=== PATIENT | female | born 1930 ===

== ENCOUNTER 2018-06-23 16:38 | Inpatient (IN) | payer OTHER ==
[2018-06-23 17:21] VITALS: BMI 24.0
--- NOTE | 2018-06-23 17:48 | PDOC ---
History of Present Illness - General Chief Complaint: Pain Stated Complaint: ELEVATED BP Time Seen by Provider: 06/23/18 17:22 History Source: Patient, Snf Records, Old Records Exam Limitations: Dementia - History of Present Illness Initial Comments: HPI: 87 y/o female BIBEMS from [facility]. Demented at baseline and unable to provide history. Transfer paperwork indicates reason for transfer as hypertensive, hyperglycemic, and vomiting. No member of staff or family member present at bedside. Telephone conversation with [facility] staff nurse, who reports the pt threw up twice today without blood or bile. Transfer requested by Dr. Oconnor. Court Appointed Guardian: Keeley Boyle PCP: Dr. Oconnor Medical Hx: - CAD - HTN - Dementia - Alzheimers Disease - Diabetes, paperwork lists both type 1 and type 2 on separate lines - Vit. D Deficiency - HLD - Agranulocytosis secondary to cancer chemotherapy - Malignant neoplasm of central portion of left female breast Past History - Past Medical History Allergies/Adverse Reactions: Allergies Allergy/AdvReac Type Severity Reaction Status Date / Time No Known Allergies Allergy Verified 06/23/18 17:22 Home Medications: Ambulatory Orders Acetaminophen [Tylenol] 650 mg PO ASDIR 06/23/18 Amlodipine Besylate [Norvasc -] 10 mg PO DAILY 06/23/18 Anastrozole [Arimidex] 1 mg PO DAILY 06/23/18 Aspirin 81 mg PO DAILY 06/23/18 Carvedilol 6.25 mg PO DAILY 06/23/18 Cholecalciferol (Vitamin D3) [Vitamin D3] 50,000 unit PO WEEKLY 06/23/18 Enalapril Maleate [Vasotec] 20 mg PO DAILY 06/23/18 Glipizide/Metformin HCl [Glipizide-Metformin 5-500 mg] 1 each PO BID 06/23/18 Insulin Glargine,Hum.rec.anlog [Lantus] 100 unit SQ ASDIR 06/23/18 Insulin Lispro [Humalog] 100 unit SQ ASDIR 06/23/18 Magnesium Oxide [Magnesium] 400 mg PO DAILY 06/23/18 Pravastatin Sodium [Pravachol (Nf)] 20 mg PO HS 06/23/18 Rivastigmine [Exelon Patch 4.6MG/24 Hours] 1 each TD DAILY 03/24/19 COPD: No - Immunization History Immunization Up to Date: Yes - Suicide/Smoking/Psychosocial Hx Smoking History: Never smoked Information on smoking cessation initiated: No Hx Alcohol Use: No Drug/Substance Use Hx: No Review of Systems - Review of Systems Able to Perform ROS?: No (Pt demented at baseline) *Physical Exam - Vital Signs Last Vital Signs Temp Pulse Resp BP Pulse Ox 97.8 F 80 16 160/80 96 06/23/18 17:16 06/23/18 17:16 06/23/18 17:16 06/23/18 17:16 06/23/18 17:16 - Physical Exam Comments: Constitutional: Well-developed, well-nourished, non-toxic elderly female in no acute distress or obvious discomfort. Found semi-fowlers in hospital bed. Sleeping comfortably. Easily arousable to voice. Alert and oriented to person only. Head: Normocephalic. No obvious external signs of trauma. Eyes: Sclerae white. Ears: Hearing grossly intact. Nose: No nasal discharge. Neck: Supple, trachea is midline. Cardiovascular / Chest: Regular rate and regular rhythm. No murmur, rubs, clicks, or gallops. Peripheral pulses: radial pulses full. Respiratory: Breathing unlabored. Equal chest rise and fall. Clear to auscultation bilaterally. No stridor, no wheezing, no rhonchi. Gastrointestinal: abdomen is tender in LLQ with mild facial grimace but no rebound or guarding. Globally, abdomen is soft and nondistended. No peritoneal signs. No overlying skin lesions or obvious signs of trauma. Neuro: Moving all four extremities spontaneously. Skin: Warm, dry, and intact. Psych: Affect: appropriate. Mood: normal. Moderate Sedation - Procedure Monitoring Vital Signs: Procedure Monitoring Vital Signs Temperature 97.8 F 06/23/18 17:16 Pulse Rate 80 06/23/18 17:16 Respiratory Rate 16 06/23/18 17:16 Blood Pressure 160/80 06/23/18 17:16 O2 Sat by Pulse Oximetry (%) 96 06/23/18 17:16 ED Treatment Course - LABORATORY CBC & Chemistry Diagram: 06/23/18 18:09 06/23/18 18:09 - RADIOLOGY Radiograph Interpretation: CT of Abdomen and Pelvis without Contrast: Dakota Encinas MD wrote on Jun 23, 2018 at 08:57 PM: Referring Physician: BISHOP SANTIAGO Patient Name: DERRICK MOTLEY THIS IS A PRELIMINARY REPORT FROM [facility] DATE OF SERVICE: 2018-06-23 19:18:45 IMAGES: [id number] EXAM: ABDOMEN \T\ PELVIS CT W/O CONTR History: 87-year-old female with left lower quadrant pain and vomiting. Dementia. Comparison: None Procedure: CT scan abdomen and pelvis; dated June 23, 2018 . Axial images obtained followed by coronal and sagittal reconstructions. Study performed unenhanced. Findings: The unenhanced liver, spleen, pancreas, and adrenal glands are unremarkable. Gallbladder and gallbladder fossa normal in appearance. No intrarenal calculi identified. No evidence of right or left-sided hydronephrosis, hydroureter, ureteral or bladder calculi. Rectum and perirectal space unremarkable. Diverticular change noted sigmoid colon and left colon. Scattered diverticula also noted transverse colon and right colon. No inflammatory changes of the large bowel identified. Terminal ileum and appendix within normal limits. Diverticular change also seen involving proximal small bowel loops with slight inflammatory change noted in the adjacent fat to an upper small bowel loop. There is no evidence of a small bowel obstruction. No free intraperitoneal air or fluid identified. No abdominal wall defects noted. Postmenopausal appearance of the uterus. No adnexal masses appreciated. No evidence of an abdominal aortic aneurysm. Calcifications noted at the origins of the branch vessels of the abdominal aorta. IVC normal configuration. Multilevel degenerative disc disease of the lumbar spine and lower thoracic spine. Impression: 1. Limited CT scan abdomen and pelvis, unenhanced. 2. Extensive colonic diverticulosis. No CT evidence of acute colonic diverticulitis. 3. Diverticular change also seen involving several proximal small bowel loops with mild inflammatory changes to the adjacent fat; consistent with acute small bowel diverticulitis. No extraluminal air or abdominal ascites present. One or more of the following dose reduction techniques were used: automated exposure control, adjustment of the mA and/or kV according to patient size, use of iterative reconstructive technique. THIS DOCUMENT HAS BEEN ELECTRONICALLY SIGNED Dakota Encinas MD 06/23/2018 20:55 EST Medical Decision Making - Medical Decision Making *Reviewed vital signs, nursing notes, and prior visit documentation (if available). 87 y/o female presenting for vomiting, HTN, and hyperglycemia. Demented pt unable to provide any history or active complaint. Afebrile. Vitals unremarkable for hypotension or tachycardia. Mild LLQ abdominal pain. Labs significant for leukocytosis with left shift. BUN/Cr mildly elevated. No previous labs available for comparison. Non-con CT of abdomen and pelvis ordered; unenhanced secondary to pts elevated Cr and decreased eGFR. Revealed findings suggestive for acute small bowel diverticulitis. Ordered Zosyn for gram negative and anaerobic coverage. Ordered 1L IVFB. Will admit pt for continued IV antibiotics given leukocytosis, advanced age, and demented mental status. 21:12 Microblog sent to [facility] service for admission. Awaiting call back. 21:[address] Velarde. Verbally appraised of the pts HPI, ED course, and current plan of management. Will admit the pt to med/surg on inpatient status. No additional ordered requested. 06/23/18 21:25 [address] conversation with pt's court appointed guardian, Keeley Boyle. Updated to pt's pending admission. *DC/Admit/Observation/Transfer Diagnosis at time of Disposition: Diverticulitis small intestine w/o perforation or abscess w/o bleeding - Discharge Dispostion Condition at time of disposition: Stable Decision to Admit order: Yes - Referrals - Patient Instructions - Post Discharge Activity
--- NOTE | 2018-06-23 17:53 | PDOC ---
Attending Attestation - HPI HPI: 06/23/18 17:54 The patient is a 87 YOF with a PMH of CAD, HTN, DM, HLD, c diff, L sided breast CA who presents to the ER sent in by [facility] for abdominal pain, nausea, and multiple episodes of NB, NB vomit. Patient is unable to provide any further history. Allergies: NKDA Surgeries: None reported Social Hx: No reported alcohol, drug or cigarette use. - Physicial Exam PE: 06/23/18 17:54 ADULT EXAM GENERAL: (+) A&Ox1, to self. HEAD: No signs of trauma EYES: PERRLA, EOMI, sclera anicteric, conjunctiva clear ENT: Auricles normal inspection, hearing grossly normal, nares patent, Moist mucosa NECK: Normal ROM, supple, JVD, or masses LUNGS: Breath sounds equal, clear to auscultation bilaterally. No wheezes, and no crackles HEART: Regular rate and rhythm, normal S1 and S2, no murmurs, rubs or gallops ABDOMEN: Soft, (+) diffuse abdominal tenderness, but worse on the left lower quadrant EXTREMITIES: Normal range of motion, no edema. NEUROLOGICAL: (+) A&Ox1, to self. SKIN: Warm, Dry, normal turgor, no rashes or lesions noted. <Delilah Jimenes - Last Filed: 06/23/18 17:54> - Resident Resident Name: [email or web address] - ED Attending Attestation I have performed the following: I have examined & evaluated the patient, The case was reviewed & discussed with the resident, I agree w/resident's findings & plan, Exceptions are as noted - Medical Decision Making 06/23/18 17:52 A portion of this note was documented by scribe services under my direction. I have reviewed the details of the note, within reason, and agree with the documentation with the following case summary and management plan written by me. Patient treated in the ED. Nursing notes are reviewed and incorporated into the medical decision-making. Vital signs reviewed. Peripheral IV access obtained by the nurse, laboratory studies are drawn and sent, reviewed and interpreted by myself. Vital Signs Temp Pulse Resp BP Pulse Ox 97.8 F 80 16 160/80 96 06/23/18 17:16 06/23/18 17:16 06/23/18 17:16 06/23/18 17:16 06/23/18 17:16 87-year-old female patient with past medical history of coronary artery disease , hypertension, diabetes, hyperlipidemia, C. difficile history, left-sided breast cancer presents with abdominal pain, nausea and vomiting. The patient was sent from [facility] with symptoms of hyperglycemia and vomiting. The patient has endorsed abdominal discomfort but given her dementia, patient is unable to provide more history. We will touch base with the facility regards for more information but given the tenderness particularly left lower quadrant, we'll need a CAT scan of the abdomen pelvis rule out diverticulitis or other acute abdominal pathology. Obtain labs, urinalysis and reassess. 06/23/18 18:11 Dr. Perez had called [facility]. Stated that these symptoms occurred today so pt was sent to ER. Dr. Perez also contacted Keeley pt's HCP, who is aware of patient's situation. 06/23/18 18:54 CBC, BMP 06/23/18 18:09 Pt signed out to oncoming night attending Dr. Nelson for further evaluation and management. <Fco Son - Last Filed: 06/23/18 18:55>
[2018-06-23 18:35] LABS: BASO % 0.2 % (0-2.0); EOS % 0.2 % (0-4.5); HEMATOCRIT 41.1 % (32.4-45.2); HEMOGLOBIN 13.9 GM/dL (10.7-15.3); MCH 30.6 pg (25.7-33.7); MCHC 33.9 g/dl (32.0-36.0); MEAN CELL VOLUME 90.1 fl (80-96); MEAN PLT VOLUME 7.9 fl (7.5-11.1); MONO % 2.7 % (3.8-10.2); NEUT % 89.9 % (42.8-82.8); PLATELET COUNT 297 K/MM3 (134-434); RBC 4.56 M/mm3 (3.60-5.2); RDW 13.9 % (11.6-15.6); WHITE BLOOD COUNT 18.9 K/mm3 (4.0-10.0)
[2018-06-23 18:37] LABS: EPI CELLS 0.5 /HPF (0-5); PH,URINE 7.5 (5.0-8.0); URINE APPEARANCE CLEAR; URINE BACTERIA 1.854 /hpf (NEGATIVE); URINE BILIRUBIN NEGATIVE (<2.0 mg/dL); URINE CASTS 0 /hpf (0-8); URINE COLOR YELLOW; URINE GLUCOSE (UA) 2+ (NEGATIVE); URINE KETONE 1+ (NEGATIVE); URINE LEUK ESTERASE NEGATIVE (NEGATIVE); URINE NITRITE NEGATIVE (NEGATIVE); URINE PROTEIN 2+ (NEGATIVE); URINE RBC 1 /hpf (0-4); URINE UROBILINOGEN 0.2 mg/dL (0.2-1.0); URINE WBC 0 /hpf (0-5)
[2018-06-23 19:10] LABS: ALBUMIN 3.8 g/dl (3.4-5.0); ALK PHOS 140 U/L (45-117); ANION GAP 9 MMOL/L (8-16); BILIRUBIN,TOTAL 0.5 mg/dL (0.2-1); BLOOD UREA NITROGEN 29 mg/dL (7-18); CALCIUM 9.3 mg/dL (8.5-10.1); CHLORIDE 102 mmol/L (98-107); CO2 23 mmol/L (21-32); CREATININE 1.3 mg/dL (0.55-1.3); GLUCOSE,RANDOM 231 mg/dL (74-106); LIPASE 151 U/L (73-393); POTASSIUM 5.2 mmol/L (3.5-5.1); SGOT/AST 25 U/L (15-37); SGPT/ALT 19 U/L (13-61); SODIUM 133 mmol/L (136-145); TOT PROT 8.7 g/dl (6.4-8.2)
[2018-06-23] MEDS ORDERED: PIPERACILLIN/TAZOB 4.5 GM 4.5 GM in DEXTROSE 5%-WATER 100 ML IVPB ONE (21:07)
[2018-06-23] MEDS ORDERED: PIPERACILLIN/TAZOB 4.5 GM 4.5 GM/100 ML BAG IVPB ONE (21:15)
[2018-06-23] MEDS ORDERED: SODIUM CHLORIDE 0.9% 500 ML INFUS.BAG IV ONE (21:18)
--- NOTE | 2018-06-23 22:16 | HP ---
CHIEF COMPLAINT: BIBA for n/v and HTN PCP: Dr. Oconnor HISTORY OF PRESENT ILLNESS: Thank you Dr. Oconnor for allowing [facility] to take part in the ongoing care of your patient. Unfortunately the patient has minimal contribution to history due to underlying medical conditions. Briefly, this is a 87 y/o female with a PMH as documented who vomited twice at her NH (NBNB as far as I can tell) and was found to be hypertensive. She was brought to the ER and BP is stable in the 160s. She can not inform us if she is having sx due to her baseline dementia. HCP tells me that she occasionally will refuse to take medications at PR. She is found to have small bowel diverticulitis on CT scan preliminary read. She has no prior visits on file here. HCP denies history of CAD. Unfortunately the day shift has left her NH at this juncture. Recent Travel: None PAST MEDICAL HISTORY: Breast Cancer (saw oncology twice and refused to go back per guardian; takes anastrozole only), CAD, HTN, HLD, DM, Cdif PAST SURGICAL HISTORY: No recent procedures; confirm full hx with PCP Social History: Resident of [facility]; demented at baseline. Family History: Couldn't reliably confirm Allergies No Known Allergies Allergy (Verified 06/23/18 17:22) HOME MEDICATIONS: Home Medications Medication Instructions Recorded Acetaminophen [Tylenol] 650 mg PO ASDIR 06/23/18 Amlodipine Besylate [Norvasc -] 10 mg PO DAILY 06/23/18 Anastrozole [Arimidex] 1 mg PO DAILY 06/23/18 Aspirin 81 mg PO DAILY 06/23/18 Carvedilol 6.25 mg PO DAILY 06/23/18 Cholecalciferol (Vitamin D3) 50,000 unit PO WEEKLY 06/23/18 [Vitamin D3] Enalapril Maleate [Vasotec] 20 mg PO DAILY 06/23/18 Glipizide/Metformin HCl 1 each PO BID 06/23/18 [Glipizide-Metformin 5-500 mg] Insulin Glargine,Hum.rec.anlog 100 unit SQ ASDIR 06/23/18 [Lantus] Insulin Lispro [Humalog] 100 unit SQ ASDIR 06/23/18 Magnesium Oxide [Magnesium] 400 mg PO DAILY 06/23/18 Pravastatin Sodium [Pravachol (Nf)] 20 mg PO HS 06/23/18 Rivastigmine [Exelon Patch 1 each TD DAILY 06/23/18 4.6MG/24 Hours] REVIEW OF SYSTEMS 10 sys ROS couldn't be confirmed due to the underlying dementia PHYSICAL EXAMINATION Vital Signs - 24 hr 06/23/18 06/23/18 17:16 22:04 Temperature 97.8 F Pulse Rate 80 Pulse Rate [ 77 Apical] Respiratory 16 17 Rate Blood Pressure 160/80 Blood Pressure 157/78 [Right Arm] O2 Sat by Pulse 96 97 Oximetry (%) GENERAL: Awake, alert, not orientated but responds to verbal stimuli HEAD: Normal with no signs of trauma. EYES: Pupils equal, round and reactive to light, extraocular movements intact, sclera anicteric, conjunctiva clear. No lid lag. EARS, NOSE, THROAT: Ears normal, nares patent, oropharynx clear without exudates. Moist mucous membranes. NECK: Normal range of motion, supple without lymphadenopathy, JVD, or masses. LUNGS: Breath sounds equal, clear to auscultation bilaterally. No wheezes, and no crackles. No accessory muscle use. HEART: Regular rate and rhythm, normal S1 and S2 without murmur, rub or gallop. ABDOMEN: Soft, vague tender, not distended, normoactive bowel sounds, MUSCULOSKELETAL: Normal range of motion at all joints. No bony deformities or tenderness. No CVA tenderness. NEUROLOGICAL: Cranial nerves II-XII intact. Normal speech. PSYCHIATRIC: Cooperative. Good eye contact. Appropriate mood and affect. SKIN: Warm, dry, normal turgor, no rashes or lesions noted, normal capillary refill. *No staff was available to help me turn to assess for decub; will still need to assess Laboratory Results - last 24 hr 06/23/18 06/23/18 06/23/18 18:08 18:09 18:09 WBC 18.9 H RBC 4.56 Hgb 13.9 Hct 41.1 MCV 90.1 MCH 30.6 MCHC 33.9 RDW 13.9 Plt Count 297 MPV 7.9 Absolute Neuts (auto) 17.0 H Neutrophils % 89.9 H Lymphocytes % 7.0 L Monocytes % 2.7 L Eosinophils % 0.2 Basophils % 0.2 Nucleated RBC % 0 Sodium 133 L Potassium 5.2 H Chloride 102 Carbon Dioxide 23 Anion Gap 9 BUN 29 H Creatinine 1.3 Creat Clearance w eGFR 38.57 POC Glucometer 230 Random Glucose 231 H Calcium 9.3 Total Bilirubin 0.5 AST 25 ALT 19 Alkaline Phosphatase 140 H Troponin I < 0.02 Total Protein 8.7 H Albumin 3.8 Lipase 151 Urine Color Urine Appearance Urine pH Ur Specific [place] Urine Protein Urine Glucose (UA) Urine Ketones Urine Blood Urine Nitrite Urine Bilirubin Urine Urobilinogen Ur Leukocyte Esterase Urine WBC (Auto) Urine RBC (Auto) Urine Casts (Auto) U Epithel Cells (Auto) Urine Bacteria (Auto) Acetone, Qual 06/23/18 06/23/18 18:09 18:12 WBC RBC Hgb Hct MCV MCH MCHC RDW Plt Count MPV Absolute Neuts (auto) Neutrophils % Lymphocytes % Monocytes % Eosinophils % Basophils % Nucleated RBC % Sodium Potassium Chloride Carbon Dioxide Anion Gap BUN Creatinine Creat Clearance w eGFR POC Glucometer Random Glucose Calcium Total Bilirubin AST ALT Alkaline Phosphatase Troponin I Total Protein Albumin Lipase Urine Color Yellow Urine Appearance Clear Urine pH 7.5 Ur Specific [place] 1.015 Urine Protein 2+ Urine Glucose (UA) 2+ Urine Ketones 1+ H Urine Blood Negative Urine Nitrite Negative Urine Bilirubin Negative Urine Urobilinogen 0.2 Ur Leukocyte Esterase Negative Urine WBC (Auto) 0 Urine RBC (Auto) 1 Urine Casts (Auto) 0 U Epithel Cells (Auto) 0.5 Urine Bacteria (Auto) 1.854 Acetone, Qual Negative L Prelim CT report (limited) shows extensive diverticulosis without diverticulitis in the colon; in the proximal small bowel she is found to have acute small bowel diverticulitis without any extraluminal air or abdominal ascites. ASSESSMENT/PLAN: Patient presents for HTN and was found to be mildly hyperglycemic with small bowel diverticulitis; placing on IVF, consulting surgery, placing on abx. Will continue home medications to control BP. Very mild hyperkalemia; will hydrate and recheck 1AM BMP-no EKG changes noted 1) Small Bowel Diverticulitis with nausea and vomiting -Seen on CT scan abdomen/pelvis. As QTc elevated placing on zosyn. NPO for now. IV fluid with NS@75cc/hr. Monitor for any signs of fluid overload; she has risk factors for CHF but no echo and limited PMH available at this time. -Consulting sgy for further opinion -Monitor on medicine service. Pain control with IV APAP; if appears uncomfortable can add MSO4 for pain but will avoid oversedation -No diarrhea noted; will check for cdiff given history if occurance here -Hold ASA for now in case any surgery required 2) Uncontrolled HTN -160s here; will continue home meds as scheduled (will hold AM Vasotec if K remains elevated after hydration). PRNs to keep SBP <160 while inpatient. I note that coreg is only reconciled as QD; normally BID dosing. Will investigate 3) DM with hyperglycemia -Hold PO medications; SSI. Home basal at full dose when eating (is on very large basal dose so may need to give some while NPO if glucose uncontrolled) -Paperwork lists her as both T1 and T2; glipizide and metformin on med list doesn't agree with a diagnosis of type 1. Can confirm with PCP. 4) Hyperkalemia -Very mild with no EKG changes. Telemetry to ensure safety overnight and can downgrade to med surg in AM. -Hydrating then checking 1AM BMP. If not improved consider insulin/D50 5) Hx Breast CA -Continue anastrazole 6) HLD -Continue statin 7) Severe Dementia 8) Leukocytosis 9) Prolonged Qtc -At 500; can recheck but will avoid QT prolonging agents FENA -NS@75 -PRN replete -NPO; advance in AM as tolerated. Due to nausea/vomiting -As tolerated; baseline activity level noted HCP: Court Appointed Guardian: Keeley Boyle Code Status: Full Code (spoke to guardian and she does not have authority to reverse this decision-will require a court order)
[2018-06-23] MEDS ORDERED: MORPHINE SULFATE 2 MG/ML VIAL IVPUSH PRN (22:56)
[2018-06-23] MEDS ORDERED: SODIUM CHLORIDE 1,000 ML IV SCH (23:00)
[2018-06-23] MEDS ORDERED: ACETAMINOPHEN 325 MG TABLET (FP) PO PRN (23:14)
[2018-06-23 23:54] LABS: BLOOD UREA NITROGEN 27 mg/dL (7-18); CALCIUM 8.6 mg/dL (8.5-10.1); CHLORIDE 104 mmol/L (98-107); CO2 23 mmol/L (21-32); CREATININE 1.2 mg/dL (0.55-1.3); GLUCOSE,RANDOM 222 mg/dL (74-106); POTASSIUM 5.1 mmol/L (3.5-5.1); SODIUM 134 mmol/L (136-145)
[2018-06-23 23:55] LABS: ANION GAP 8 MMOL/L (8-16)
[2018-06-24] MEDS ORDERED: PIPERACILLIN/TAZOB 3.375 GM 3.375 GM/50 ML BAG IVPB ONE ×2 (02:11→10:09)
[2018-06-24] MEDS: PIPERACILLIN/TAZOB 3.375 GM 3.375 GM in DEXTROSE 5%-WATER - 50 ML IVPB SCH ×2 (02:24→10:12)
[2018-06-24] MEDS ORDERED: INSULIN (NOVOLOG) ASPART 100 UNITS/ML 10ML VIAL ONE (02:26)
[2018-06-24] MEDS: INSULIN SLIDING SCALE (NOVOLOG) 1 VIAL SQ SCH ×4 (02:27→15:22)
[2018-06-24 07:17] LABS: BASO % 0.5 % (0-2.0); HEMATOCRIT 36.4 % (32.4-45.2); HEMOGLOBIN 12.6 GM/dL (10.7-15.3); LYMPH % 13.6 % (8-40); MCHC 34.5 g/dl (32.0-36.0); MEAN CELL VOLUME 89.8 fl (80-96); MEAN PLT VOLUME 7.7 fl (7.5-11.1); MONO % 9.3 % (3.8-10.2); NEUT % 75.6 % (42.8-82.8); PLATELET COUNT 282 K/MM3 (134-434); RBC 4.06 M/mm3 (3.60-5.2); RDW 13.7 % (11.6-15.6); WHITE BLOOD COUNT 16.3 K/mm3 (4.0-10.0)
[2018-06-24 07:47] LABS: ALBUMIN 3.2 g/dl (3.4-5.0); ALK PHOS 119 U/L (45-117); ANION GAP 7 MMOL/L (8-16); BILIRUBIN,TOTAL 0.6 mg/dL (0.2-1); BLOOD UREA NITROGEN 24 mg/dL (7-18); CALCIUM 8.6 mg/dL (8.5-10.1); CHLORIDE 106 mmol/L (98-107); CO2 24 mmol/L (21-32); CREATININE 1.3 mg/dL (0.55-1.3); GLUCOSE,RANDOM 135 mg/dL (74-106); MAGNESIUM 1.9 mg/dL (1.8-2.4); POTASSIUM 4.1 mmol/L (3.5-5.1); SGOT/AST 21 U/L (15-37); SGPT/ALT 16 U/L (13-61); SODIUM 136 mmol/L (136-145); TOT PROT 7.4 g/dl (6.4-8.2)
[2018-06-24] MEDS: PIPERACILLIN/TAZOB 2.25 GM 2.25 GM in DEXTROSE 5%-WATER - 50 ML IVPB SCH ×2 (09:40→16:52)
[2018-06-24] MEDS ORDERED: amLODIPine BESYLATE 10 MG TABLET (FP) PO SCH (10:00)
[2018-06-24] MEDS ORDERED: RIVASTIGMINE 4.6 MG/24 HOURS TRANSDERMAL PATCH TD SCH (10:00)
[2018-06-24] MEDS ORDERED: CARVEDILOL 6.25 MG TABLET (FP) PO SCH (10:00)
[2018-06-24] MEDS: HEPARIN NA (PORCINE) 5,000 UNITS/ML 1ML VIAL SQ SCH ×2 (10:00→22:18)
[2018-06-24] MEDS ORDERED: ANASTROZOLE 1 MG TABLET PO SCH (10:00)
--- NOTE | 2018-06-24 10:13 | EKG ---
Test Reason : Blood Pressure : / mmHG Vent. Rate : 082 BPM Atrial Rate : 082 BPM P-R Int : 136 ms QRS Dur : 136 ms QT Int : 428 ms P-R-T Axes : 068 035 104 degrees QTc Int : 500 ms NORMAL SINUS RHYTHM LEFT BUNDLE BRANCH BLOCK ABNORMAL ECG NO PREVIOUS ECGS AVAILABLE Confirmed by PEDRO MARTIN MD ([id number]) on 06/24/2018 10:12:41 AM Referred By: Confirmed By:PEDRO MARTIN MD
--- NOTE | 2018-06-24 14:33 | CON.ID ---
Consult Consult Specialty:: infectious diseases Referred by:: Reason for Consultation:: sepsis,ams - History of Present Illness Chief Complaint: patient with ams History of Present Illness: patient cannot give history which ahs been taken from the staff and charts 87yo obese, diabetic [facility] resident with dementia, HTN, HLD, CAD, L breast CA sent to ER after 2 episodes of vomiting at [place] with hypertension and hyperglycemia. patient in the er had elevated wbc and with ams and lethargic and weakness CT showed small bowel diverticulitis but none in colon without abscess or perforation. Surgery was asked to assess. patient looks very weak - History Source History Provided By: Medical Record Limitations to Obtaining History: Clinical Condition - Alcohol/Substance Use Hx Alcohol Use: No - Smoking History Smoking history: Never smoked Home Medications - Allergies Allergies/Adverse Reactions: Allergies Allergy/AdvReac Type Severity Reaction Status Date / Time No Known Allergies Allergy Verified 06/23/18 17:22 - Home Medications Home Medications: Ambulatory Orders Acetaminophen [Tylenol] 650 mg PO ASDIR 06/23/18 Amlodipine Besylate [Norvasc -] 10 mg PO DAILY 06/23/18 Anastrozole [Arimidex] 1 mg PO DAILY 06/23/18 Cholecalciferol (Vitamin D3) [Vitamin D3] 50,000 unit PO WEEKLY 06/23/18 Enalapril Maleate [Vasotec] 20 mg PO DAILY 06/23/18 Glipizide/Metformin HCl [Glipizide-Metformin 5-500 mg] 1 each PO BID 06/23/18 Insulin Glargine,Hum.rec.anlog [Lantus] 100 unit SQ ASDIR 06/23/18 Insulin Lispro [Humalog] 100 unit SQ ASDIR 06/23/18 Magnesium Oxide [Magnesium] 400 mg PO DAILY 06/23/18 Pravastatin Sodium [Pravachol (Nf)] 20 mg PO HS 06/23/18 RX: Aspirin 81 mg PO DAILY 06/23/18 RX: Carvedilol 6.25 mg PO DAILY 06/23/18 Rivastigmine [Exelon Patch 4.6MG/24 Hours] 1 each TD DAILY 06/23/18 Review of Systems Unable to obtain ROS, reason: unable to obtain Physical Exam Vital Signs: Vital Signs Temperature 98.0 F 06/24/18 10:00 Pulse Rate 71 06/24/18 10:00 Respiratory Rate 18 03/25/19 10:00 Blood Pressure 166/88 06/24/18 10:00 O2 Sat by Pulse Oximetry (%) 95 06/24/18 10:00 Constitutional: Yes: Calm, Other Eyes: Yes: Conjunctiva Clear Neck: Yes: Supple, Trachea Midline Cardiovascular: Yes: Regular Rate and Rhythm Respiratory: Yes: Poor Air Entry, Rhonchi Gastrointestinal: Yes: Normal Bowel Sounds, Soft Musculoskeletal: Yes: WNL Extremities: Yes: WNL Neurological: Yes: Lethargy, Other (confusion) Psychiatric: Yes: Other Labs: CBC, BMP 06/24/18 06:20 06/24/18 06:20 Imaging - Results Chest X-ray: Report Reviewed, Image Reviewed Cat Scan: Report Reviewed, Image Reviewed Assessment/Plan i think the patient could have aspirated and also is probably dehydrated Problem List - Problems (1) Diabetes mellitus type 2, uncontrolled, without complications Code(s): E11.65 - TYPE 2 DIABETES MELLITUS WITH HYPERGLYCEMIA (2) Diverticulitis small intestine w/o perforation or abscess w/o bleeding Code(s): K57.12 - DVTRCLI OF SM INT W/O PERFORATION OR ABSCESS W/O BLEEDING (3) Hypertension Code(s): I10 - ESSENTIAL (PRIMARY) HYPERTENSION Qualifiers: Hypertension type: essential hypertension Qualified Code(s): I10 - Essential (primary) hypertension 4 pna 5 leukocytosis plan will start patient on abx close watch on mental status monitor wbc hydration rest as per the team
[2018-06-24] MEDS ORDERED: SODIUM CHLORIDE 1,000 ML IV SCH (15:25)
--- NOTE | 2018-06-24 16:54 | PN ---
Progress Note (short form) - Note Progress Note: pt seen / examined in er chart reviewed awake/ comfortable denies pain afebrile Vital Signs Temp 98.0 F 06/24/18 10:00 Pulse 75 06/24/18 14:00 Resp 18 06/24/18 14:00 BP 158/79 06/24/18 14:00 Pulse Ox 95 06/24/18 10:00 Intake & Output 06/23/18 06/24/18 06/24/18 23:59 11:59 23:59 Weight 140 lb Other: Voiding Method Toilet Height 5 ft 4 in Body Mass Index (BMI) 24.0 Weight Measurement Method Est/Stated by Patient Active Medications Acetaminophen (Tylenol -) 650 mg PO Q6H PRN PRN Reason: FEVER/PAIN LEVEL 1-5 Amlodipine Besylate (Norvasc -) 10 mg PO DAILY [facility] Last Admin: 06/24/18 10:00 Dose: 10 mg Anastrozole (Arimidex -) 1 mg PO DAILY [facility] Last Admin: 06/24/18 10:01 Dose: 1 mg Atorvastatin Calcium (Lipitor -) 10 mg PO HS [facility] Carvedilol (Coreg -) 6.25 mg PO DAILY [facility] Last Admin: 06/24/18 10:00 Dose: 6.25 mg Heparin Sodium (Porcine) (Heparin -) 5,000 unit SQ BID [facility] Last Admin: 06/24/18 10:00 Dose: 5,000 unit Piperacillin Sod/Tazobactam (Sod 2.25 gm/ Dextrose) 50 mls @ 100 mls/hr IVPB Q6H-IV [facility]; Protocol Potassium Chloride/Dextrose/Sod Cl (D5-1/2ns+20 Meq Kcl -) 20 meq in 1,000 mls @ 83 mls/hr IV ASDIR [facility] Insulin Aspart (Novolog Vial Sliding Scale -) 1 vial SQ Q4HPO [facility]; Protocol Last Admin: 06/24/18 15:22 Dose: Not Given Morphine Sulfate (Morphine Sulfate) 1 mg IVPUSH Q4H PRN PRN Reason: PAIN LEVEL 7 - 10 Rivastigmine (Exelon Patch 4.6mg/24 Hours -) 1 each TD DAILY [facility] Last Admin: 06/24/18 10:01 Dose: 1 each CBC, BMP 06/24/18 06:20 06/24/18 06:20 ekg/ cxr/ ct abd -- reviewed Physical exam Awake and comfortable S1 S2 RRR No pallor Lungs --diminished at bases Abd- soft, nontender. Bowel sounds present no edema a/p Acute diverticulitis htn continue abx npo today clears tomorrow if better fluids-- change to D5- f/u labs pt is dnr / di will follow discussed with nursing staff also. Will follow
[2018-06-24] MEDS ORDERED: D5-1/2NS+20 MEQ KCL - 20 MEQ/1,000 ML INFUS.BAG IV SCH (17:00)
[2018-06-24] MEDS ORDERED: INSULIN SLIDING SCALE (NOVOLOG) 1 VIAL SQ SCH (18:00)
--- NOTE | 2018-06-24 20:38 | CONSULT ---
Consult Consult Specialty:: General Surgery Referred by:: Dr. Velarde Reason for Consultation:: small bowel diverticulitis - History of Present Illness Chief Complaint: pt denies any (baseline dementia) History of Present Illness: 87yo obese, diabetic F [facility] resident with dementia, HTN, HLD, CAD, L breast CA sent to ER after 2 episodes of vomiting at [place] with hypertension and hyperglycemia. She has been afebrile, denies pain or even vomiting, and is not sure why she is in the hospital. She also denies diarrhea, constipation, fever or chills, recent illness, or even living in a [facility]. WBC is elevated in ER and left-shifted, labs suggest dehydration and hyperglycemia, and she has been hypertensive. CT showed small bowel diverticulitis but none in colon ( though there is diverticulosis), without abscess or perforation. Surgery was asked to assess. She has been given IVF and antibiotics. She is seen and examined in ER awaiting a bed upstairs. She states she feels ok, and thinks her belly is its usual size. She also thinks she has had daily BMs but not today. History is mainly from chart, as the patient cannot provide reliable information. She denies h/o surgeries, though carries L breast CA diagnosis, so biopsy is presumed. She has not needed pain medication. She is also DNR/DNI on the chart. - History Source History Provided By: Patient, Medical Record Limitations to Obtaining History: Dementia - Past Medical History CAM [employer]ER: Yes: Alzheimer's, Dementia Cardio/Vascular: Yes: CAD, HTN, Hyperlipdemia Gastrointestinal: Yes: Diverticulosis Reproductive: Yes: Postmenopausal Heme/Onc: Yes: Cancer (L breast) Infectious Disease: Yes: C-Diff Endocrine: Yes: Diabetes Mellitus - Past Surgical History Past Surgical History: Yes: Breast Biopsy Additional Surgical History: pt denies any surgeries, no abdominal scars - otherwise unknown - Alcohol/Substance Use Hx Alcohol Use: No History of Substance Use: reports: None - Smoking History Smoking history: Never smoked Have you smoked in the past 12 months: No - Social History Usual Living Arrangement: Assisted Home Medications - Allergies Allergies/Adverse Reactions: Allergies Allergy/AdvReac Type Severity Reaction Status Date / Time No Known Allergies Allergy Verified 06/23/18 17:22 - Home Medications Home Medications: Ambulatory Orders Acetaminophen [Tylenol] 650 mg PO ASDIR 06/23/18 Amlodipine Besylate [Norvasc -] 10 mg PO DAILY 06/23/18 Anastrozole [Arimidex] 1 mg PO DAILY 06/23/18 Aspirin 81 mg PO DAILY 06/23/18 Carvedilol 6.25 mg PO DAILY 06/23/18 Cholecalciferol (Vitamin D3) [Vitamin D3] 50,000 unit PO WEEKLY 06/23/18 Enalapril Maleate [Vasotec] 20 mg PO DAILY 06/23/18 Glipizide/Metformin HCl [Glipizide-Metformin 5-500 mg] 1 each PO BID 06/23/18 Insulin Glargine,Hum.rec.anlog [Lantus] 100 unit SQ ASDIR 06/23/18 Insulin Lispro [Humalog] 100 unit SQ ASDIR 06/23/18 Magnesium Oxide [Magnesium] 400 mg PO DAILY 06/23/18 Pravastatin Sodium [Pravachol (Nf)] 20 mg PO HS 06/23/18 Rivastigmine [Exelon Patch 4.6MG/24 Hours] 1 each TD DAILY 06/23/18 Family Disease History - Family Disease History Family History: Unable to Obtain (pt demented) Review of Systems Unable to obtain ROS, reason: pt demented/offers none - Review of Systems Constitutional: denies: Chills, Fever, Loss of Appetite Eyes: reports: Other (wears glasses, always per pt). denies: Recent Change in Vision HENT: denies: Difficult Swallowing, Throat Pain Neck: denies: Swollen Glands, Tenderness Cardiovascular: denies: Chest Pain, Palpitations Respiratory: denies: Cough, SOB Gastrointestinal: reports: Vomiting (per chart, pt denies). denies: Abdominal Pain, Constipation, Diarrhea Genitourinary: denies: Burning, Dysuria Musculoskeletal: denies: Back Pain, Joint Pain, Muscle Pain Integumentary: denies: Change in Color, Rash Neurological: denies: Dizziness, Headache Physical Exam Vital Signs: Vital Signs Temperature 98.0 F 06/24/18 10:00 Pulse Rate 75 06/24/18 14:00 Respiratory Rate 18 06/24/18 14:00 Blood Pressure 158/79 06/24/18 14:00 O2 Sat by Pulse Oximetry (%) 95 06/24/18 10:00 Constitutional: Yes: Well Nourished, No Distress, Calm Eyes: Yes: Conjunctiva Clear, EOM Intact HENT: Yes: Atraumatic, Normocephalic Neck: Yes: Supple, Trachea Midline Cardiovascular: Yes: Regular Rate and Rhythm, Murmur Respiratory: Yes: Regular, CTA Bilaterally Gastrointestinal: Yes: Normal Bowel Sounds (to slightly hypo), Soft, Abdomen, Obese, Distention. No: Tenderness, Tenderness, Epigastrium ...Rectal Exam: Yes: Deferred Renal/: No: CVA Tenderness - Left, CVA Tenderness - Right Musculoskeletal: No: Joint Stiffness, Joint Swelling Extremities: No: Cool, Cyanosis Edema: No Peripheral Pulses WNL: Yes Integumentary: No: Jaundice, Rash Neurological: Yes: Alert, Confusion (baseline dementia - denies living at [facility]; states brothers do come to visit her; does not know why she came to hospital, but denies pain or current symptoms) Psychiatric: Yes: Alert. No: Agitated Labs: CBC, BMP 06/24/18 06:20 06/24/18 06:20 CMP Sodium 136 mmol/L (136-145) 06/24/18 06:20 Potassium 4.1 mmol/L (3.5-5.1) 06/24/18 06:20 Chloride 106 mmol/L (98-107) 06/24/18 06:20 Carbon Dioxide 24 mmol/L (21-32) 06/24/18 06:20 Anion Gap 7 MMOL/L (8-16) L 06/24/18 06:20 BUN 24 mg/dL (7-18) H 06/24/18 06:20 Creatinine 1.3 mg/dL (0.55-1.3) 06/24/18 06:20 Creat Clearance w eGFR 38.57 (>60) 06/24/18 06:20 POC Glucometer 130 UNITS (80-120) 06/24/18 15:12 Random Glucose 135 mg/dL (74-106) H 06/24/18 06:20 Hemoglobin A1c % 8.8 % (4.2-6.3) H 06/23/18 23:15 Calcium 8.6 mg/dL (8.5-10.1) 06/24/18 06:20 Magnesium 1.9 mg/dL (1.8-2.4) 06/24/18 06:20 Total Bilirubin 0.6 mg/dL (0.2-1) 06/24/18 06:20 AST 21 U/L (15-37) 06/24/18 06:20 ALT 16 U/L (13-61) 06/24/18 06:20 Alkaline Phosphatase 119 U/L (45-117) H 06/24/18 06:20 Troponin I < 0.02 ng/ml (0.00-0.05) 06/23/18 18:09 Total Protein 7.4 g/dl (6.4-8.2) 06/24/18 06:20 Albumin 3.2 g/dl (3.4-5.0) L 06/24/18 06:20 Lipase 151 U/L (73-393) 06/23/18 18:09 Urine Test Results Urine Color Yellow 06/23/18 18:12 Urine Appearance Clear 06/23/18 18:12 Urine pH 7.5 (5.0-8.0) 06/23/18 18:12 Ur Specific [place] 1.015 (1.010-1.035) 06/23/18 18:12 Urine Protein 2+ (NEGATIVE) 06/23/18 18:12 Urine Glucose (UA) 2+ (NEGATIVE) 06/23/18 18:12 Urine Ketones 1+ (NEGATIVE) H 06/23/18 18:12 Urine Blood Negative (NEGATIVE) 06/23/18 18:12 Urine Nitrite Negative (NEGATIVE) 06/23/18 18:12 Urine Bilirubin Negative (<2.0 mg/dL) 06/23/18 18:12 Ur Leukocyte Esterase Negative (NEGATIVE) 06/23/18 18:12 wbc still up dehydrated by labs BUN/Cr up today A1C high Imaging - Results Cat Scan: Report Reviewed, Image Reviewed (images reviewed - diffuse diverticulosis but no colonic diverticulitis, + area of central periintestinal inflammation in SB consistent with SB diverticulitis, no free air or fluid, no obstruction, kidneys with hazy/irregular borders) Problem List - Problems (1) Diverticulitis small intestine w/o perforation or abscess w/o bleeding Assessment/Plan: admitted to medicine antibiotics per ID NPO/IVF - needs more rehydration nonnarcotic pain meds prn if needed trend labs GI/DVT prophylaxis if still without pain or tenderness in am, would consider trying clear liquids advance slowly, no faster than q2-3 meals, as tolerated keep lytes in normal range maintain glucose control continue home meds will follow up Code(s): K57.12 - DVTRCLI OF SM INT W/O PERFORATION OR ABSCESS W/O BLEEDING (2) Hypertension Code(s): I10 - ESSENTIAL (PRIMARY) HYPERTENSION Qualifiers: Hypertension type: essential hypertension Qualified Code(s): I10 - Essential (primary) hypertension (3) Diabetes mellitus type 2, uncontrolled, without complications Code(s): E11.65 - TYPE 2 DIABETES MELLITUS WITH HYPERGLYCEMIA (4) Cancer of left breast Assessment/Plan: on anastrozole only Code(s): C50.912 - MALIGNANT NEOPLASM OF UNSPECIFIED SITE OF LEFT FEMALE BREAST Qualifiers: Breast location: central portion of breast Estrogen receptor status: positive Patient sex: female Qualified Code(s): C50.112 - Malignant neoplasm of central portion of left female breast; Z17.0 - Estrogen receptor positive status [ER+]
[2018-06-24] MEDS ORDERED: ATORVASTATIN CA 10 MG TABLET (FP) ONE (21:54)
[2018-06-24] MEDS ORDERED: HEPARIN NA (PORCINE) 5,000 UNITS/ML 1ML VIAL ONE (21:55)
[2018-06-24] MEDS ORDERED: ATORVASTATIN CA 10 MG TABLET (FP) PO SCH (22:00)
[2018-06-25] MEDS ORDERED: ACETAMINOPHEN 325 MG TABLET (FP) PO PRN (01:17)
[2018-06-25] MEDS ORDERED: PATIENT'S OWN MEDICATION (NON-FORMULARY) (Insulin Lispro [Humalog] 100 UNIT) SQ SCH (01:17)
[2018-06-25] MEDS ORDERED: MORPHINE SULFATE 2 MG/ML VIAL IVPUSH PRN (01:17)
[2018-06-25] MEDS ORDERED: PATIENT'S OWN MEDICATION (NON-FORMULARY) (Glipizide/Metformin Hcl [Glipizide-Metformin 5-5 PO SCH (01:17)
[2018-06-25] MEDS ORDERED: PIPERACILLIN/TAZOBACTAM 2.25 GM VIAL IVPB ONE ×4 (02:50→21:15)
[2018-06-25] MEDS ORDERED: DEXTROSE 5%-WATER - 50 ML IVPB ONE ×4 (02:50→21:15)
[2018-06-25] MEDS: PIPERACILLIN/TAZOB 2.25 GM 2.25 GM in DEXTROSE 5%-WATER - 50 ML IVPB SCH ×4 (02:54→21:29)
[2018-06-25] MEDS ORDERED: INSULIN SLIDING SCALE (NOVOLOG) 1 VIAL SQ SCH ×2 (06:00→14:00)
[2018-06-25] MEDS: D5-1/2NS+20 MEQ KCL - 20 MEQ/1,000 ML INFUS.BAG IV SCH ×2 (06:12→21:29)
[2018-06-25] MEDS: glipiZIDE 5 MG TABLET (FP) PO SCH ×2 (06:13→06:16)
[2018-06-25] MEDS: metFORMIN HCL 500 MG TABLET (FP) PO SCH ×2 (06:13→06:15)
[2018-06-25 07:44] LABS: BASO % 0.8 % (0-2.0); EOS % 5.4 % (0-4.5); HEMATOCRIT 32.3 % (32.4-45.2); HEMOGLOBIN 10.9 GM/dL (10.7-15.3); MCH 30.2 pg (25.7-33.7); MCHC 33.8 g/dl (32.0-36.0); MEAN CELL VOLUME 89.3 fl (80-96); MEAN PLT VOLUME 7.5 fl (7.5-11.1); MONO % 10.2 % (3.8-10.2); NEUT % 63.6 % (42.8-82.8); PLATELET COUNT 256 K/MM3 (134-434); RBC 3.62 M/mm3 (3.60-5.2); RDW 13.9 % (11.6-15.6)
[2018-06-25 08:16] LABS: ALBUMIN 2.9 g/dl (3.4-5.0); ALK PHOS 96 U/L (45-117); ANION GAP 6 MMOL/L (8-16); BILIRUBIN,TOTAL 0.7 mg/dL (0.2-1); BLOOD UREA NITROGEN 21 mg/dL (7-18); CALCIUM 8.4 mg/dL (8.5-10.1); CHLORIDE 107 mmol/L (98-107); CO2 24 mmol/L (21-32); CREATININE 1.3 mg/dL (0.55-1.3); GLUCOSE,RANDOM 175 mg/dL (74-106); SGOT/AST 26 U/L (15-37); SGPT/ALT 15 U/L (13-61); SODIUM 137 mmol/L (136-145); TOT PROT 6.4 g/dl (6.4-8.2)
[2018-06-25] MEDS ORDERED: INSULIN (LEVEMIR) 100 UNITS/ML UNITS SQ SCH (09:00)
[2018-06-25] MEDS: ASPIRIN 81 MG CHEWABLE TABLETS PO SCH (09:54)
[2018-06-25] MEDS: amLODIPine BESYLATE 10 MG TABLET (FP) PO SCH (09:54)
[2018-06-25] MEDS: MAGNESIUM OXIDE 400 MG TABLET (FP) PO SCH (09:54)
[2018-06-25] MEDS: CARVEDILOL 6.25 MG TABLET (FP) PO SCH (09:54)
[2018-06-25] MEDS: HEPARIN NA (PORCINE) 5,000 UNITS/ML 1ML VIAL SQ SCH ×2 (09:54→21:29)
[2018-06-25] MEDS: ENALAPRIL MALEATE 10 MG TABLET (FP) PO SCH (09:55)
[2018-06-25] MEDS: RIVASTIGMINE 4.6 MG/24 HOURS TRANSDERMAL PATCH TD SCH (09:55)
[2018-06-25] MEDS: ANASTROZOLE 1 MG TABLET PO SCH (09:55)
[2018-06-25] MEDS ORDERED: INSULIN (LEVEMIR) 100 UNITS/ML UNITS SQ ONE (10:27)
--- NOTE | 2018-06-25 11:16 | PN ---
Progress Note (short form) - Note Progress Note: no distress no pain s poke with surgery Vital Signs - 24 hr 06/24/18 06/24/18 06/24/18 14:00 22:35 22:36 Temperature 97.6 F Pulse Rate 75 Respiratory 18 18 18 Rate Blood Pressure 158/79 129/78 O2 Sat by Pulse 95 Oximetry (%) 06/24/18 06/25/18 06/25/18 22:40 01:23 05:40 Temperature 97 F L 98.3 F 97.5 F L Pulse Rate 65 70 71 Respiratory 18 18 18 Rate Blood Pressure 129/78 126/71 131/74 O2 Sat by Pulse 95 Oximetry (%) 06/25/18 09:52 Temperature Pulse Rate 71 Respiratory 20 Rate Blood Pressure 136/63 O2 Sat by Pulse Oximetry (%) Current Medications Generic Name Dose Route Start Last Admin Trade Name Freq PRN Reason Stop Dose Admin Acetaminophen 650 mg 06/25/18 01:17 Tylenol - PO Q6H PRN FEVER/PAIN LEVEL 1-5 Amlodipine Besylate 10 mg 06/25/18 10:00 06/25/18 09:54 Norvasc - PO 10 mg DAILY [facility] Administration Anastrozole 1 mg 06/25/18 10:00 06/25/18 09:55 Arimidex - PO 1 mg DAILY [facility] Administration Aspirin 81 mg 06/25/18 10:00 06/25/18 09:54 Asa - PO 81 mg DAILY [facility] Administration Atorvastatin Calcium 10 mg 06/25/18 22:00 Lipitor - PO HS [facility] Carvedilol 6.25 mg 06/25/18 10:00 06/25/18 09:54 Coreg - PO 6.25 mg DAILY [facility] Administration Enalapril Maleate 20 mg 06/25/18 10:00 06/25/18 09:55 Vasotec - PO 20 mg DAILY [facility] Administration Ergocalciferol 50,000 unit 06/30/18 10:00 Drisdol - PO [place]@1000 [facility] Heparin Sodium (Porcine) 5,000 unit 06/25/18 10:00 06/25/18 09:54 Heparin - SQ 5,000 unit BID [facility] Administration Potassium Chloride/Dextrose/Sod Cl 20 meq in 1,000 mls @ 83 mls/hr 06/25/18 01 :17 06/25/18 06:12 D5-1/2ns+20 Meq Kcl - IV 83 mls/hr ASDIR [facility] Administration Piperacillin Sod/Tazobactam 50 mls @ 100 mls/hr 06/25/18 03:00 06/25/18 09:55 Sod 2.25 gm/ Dextrose IVPB 100 mls/hr Q6H-IV [facility] Administration Protocol Insulin Aspart 1 vial 06/25/18 14:00 Novolog Vial Sliding Scale - SQ TID [facility] Protocol Magnesium Oxide 400 mg 06/25/18 10:00 06/25/18 09:54 Mag-Ox - PO 400 mg DAILY [facility] Administration Morphine Sulfate 1 mg 06/25/18 01:17 Morphine Sulfate IVPUSH Q4H PRN PAIN LEVEL 7 - 10 Rivastigmine 1 each 06/25/18 10:00 06/25/18 09:55 Exelon Patch 4.6mg/24 Hours - TD 1 each DAILY [facility] Administration Laboratory Results - last 24 hr 06/24/18 06/25/18 06/25/18 15:12 06:10 07:00 WBC 12.0 H RBC 3.62 Hgb 10.9 Hct 32.3 L MCV 89.3 MCH 30.2 MCHC 33.8 RDW 13.9 Plt Count 256 MPV 7.5 Absolute Neuts (auto) 7.6 Neutrophils % 63.6 Lymphocytes % 20.0 D Monocytes % 10.2 Eosinophils % 5.4 H D Basophils % 0.8 Nucleated RBC % 0 Sodium Potassium Chloride Carbon Dioxide Anion Gap BUN Creatinine Creat Clearance w eGFR POC Glucometer 130 189 Random Glucose Calcium Total Bilirubin AST ALT Alkaline Phosphatase Total Protein Albumin 06/25/18 06/25/18 07:00 10:06 WBC RBC Hgb Hct MCV MCH MCHC RDW Plt Count MPV Absolute Neuts (auto) Neutrophils % Lymphocytes % Monocytes % Eosinophils % Basophils % Nucleated RBC % Sodium 137 Potassium 4.0 Chloride 107 Carbon Dioxide 24 Anion Gap 6 L BUN 21 H Creatinine 1.3 Creat Clearance w eGFR 38.57 POC Glucometer 123 Random Glucose 175 H Calcium 8.4 L Total Bilirubin 0.7 AST 26 ALT 15 Alkaline Phosphatase 96 Total Protein 6.4 Albumin 2.9 L S1 S2 RRR lungs decreased Abd- soft NT no edema PLAN continue abx start clears iv fluids iv antibiotics wbc better pt is dnr / DNI dc DM meds as pt is starting clears only Problem List - Problems (1) Diabetes mellitus type 2, uncontrolled, without complications Code(s): E11.65 - TYPE 2 DIABETES MELLITUS WITH HYPERGLYCEMIA (2) Diverticulitis small intestine w/o perforation or abscess w/o bleeding Code(s): K57.12 - DVTRCLI OF SM INT W/O PERFORATION OR ABSCESS W/O BLEEDING (3) Hypertension Code(s): I10 - ESSENTIAL (PRIMARY) HYPERTENSION Qualifiers: Hypertension type: essential hypertension Qualified Code(s): I10 - Essential (primary) hypertension
[2018-06-25] MEDS: INSULIN SLIDING SCALE (NOVOLOG) 1 VIAL SQ SCH ×2 (11:40→18:33)
--- NOTE | 2018-06-25 13:56 | PN ---
Progress Note, Physician History of Present Illness: patient looking better more awake and alert says she is feeling better - Current Medication List Current Medications: Active Medications Acetaminophen (Tylenol -) 650 mg PO Q6H PRN PRN Reason: FEVER/PAIN LEVEL 1-5 Amlodipine Besylate (Norvasc -) 10 mg PO DAILY [facility] Last Admin: 06/25/18 09:54 Dose: 10 mg Anastrozole (Arimidex -) 1 mg PO DAILY [facility] Last Admin: 06/25/18 09:55 Dose: 1 mg Aspirin (Asa -) 81 mg PO DAILY [facility] Last Admin: 06/25/18 09:54 Dose: 81 mg Atorvastatin Calcium (Lipitor -) 10 mg PO HS [facility] Carvedilol (Coreg -) 6.25 mg PO DAILY [facility] Last Admin: 06/25/18 09:54 Dose: 6.25 mg Enalapril Maleate (Vasotec -) 20 mg PO DAILY [facility] Last Admin: 06/25/18 09:55 Dose: 20 mg Ergocalciferol (Drisdol -) 50,000 unit PO Macedo@1000 [facility] Heparin Sodium (Porcine) (Heparin -) 5,000 unit SQ BID [facility] Last Admin: 06/25/18 09:54 Dose: 5,000 unit Potassium Chloride/Dextrose/Sod Cl (D5-1/2ns+20 Meq Kcl -) 20 meq in 1,000 mls @ 83 mls/hr IV ASDIR [facility] Last Admin: 06/25/18 06:12 Dose: 83 mls/hr Piperacillin Sod/Tazobactam (Sod 2.25 gm/ Dextrose) 50 mls @ 100 mls/hr IVPB Q6H-IV [facility]; Protocol Last Admin: 06/25/18 09:55 Dose: 100 mls/hr Insulin Aspart (Novolog Vial Sliding Scale -) 1 vial SQ TIDAC [facility]; Protocol Last Admin: 06/25/18 11:40 Dose: Not Given Magnesium Oxide (Mag-Ox -) 400 mg PO DAILY [facility] Last Admin: 06/25/18 09:54 Dose: 400 mg Morphine Sulfate (Morphine Sulfate) 1 mg IVPUSH Q4H PRN PRN Reason: PAIN LEVEL 7 - 10 Rivastigmine (Exelon Patch 4.6mg/24 Hours -) 1 each TD DAILY [facility] Last Admin: 06/25/18 09:55 Dose: 1 each - Objective Vital Signs: Vital Signs Temperature 97.5 F L 06/25/18 05:40 Pulse Rate 71 06/25/18 09:52 Respiratory Rate 20 06/25/18 09:52 Blood Pressure 136/63 06/25/18 09:52 O2 Sat by Pulse Oximetry (%) 95 06/24/18 22:40 Constitutional: Yes: No Distress, Calm Cardiovascular: Yes: Regular Rate and Rhythm Respiratory: Yes: Regular, Rhonchi Gastrointestinal: Yes: Normal Bowel Sounds, Soft Musculoskeletal: Yes: WNL Extremities: Yes: WNL Neurological: Yes: Alert Psychiatric: Yes: Alert Labs: CBC, BMP 06/25/18 07:00 06/25/18 07:00 Assessment/Plan i think the patient could have aspirated and also is probably dehydrated Problem List - Problems (1) Diabetes mellitus type 2, uncontrolled, without complications Code(s): E11.65 - TYPE 2 DIABETES MELLITUS WITH HYPERGLYCEMIA (2) Diverticulitis small intestine w/o perforation or abscess w/o bleeding Code(s): K57.12 - DVTRCLI OF SM INT W/O PERFORATION OR ABSCESS W/O BLEEDING (3) Hypertension Code(s): I10 - ESSENTIAL (PRIMARY) HYPERTENSION Qualifiers: Hypertension type: essential hypertension Qualified Code(s): I10 - Essential (primary) hypertension 4 pna 5 leukocytosis plan continue abx close watch on mental status wbc trending down hydration rest as per the team
[2018-06-25] MEDS ORDERED: INSULIN (NOVOLOG) ASPART 100 UNITS/ML 10ML VIAL ONE (18:32)
[2018-06-25] MEDS: ATORVASTATIN CA 10 MG TABLET (FP) PO SCH (21:29)
[2018-06-26] MEDS ORDERED: DEXTROSE 5%-WATER - 50 ML IVPB ONE ×4 (02:09→21:29)
[2018-06-26] MEDS ORDERED: PIPERACILLIN/TAZOBACTAM 2.25 GM VIAL IVPB ONE ×4 (02:09→21:28)
[2018-06-26] MEDS: PIPERACILLIN/TAZOB 2.25 GM 2.25 GM in DEXTROSE 5%-WATER - 50 ML IVPB SCH ×4 (02:46→21:35)
[2018-06-26] MEDS: INSULIN SLIDING SCALE (NOVOLOG) 1 VIAL SQ SCH ×3 (06:51→17:11)
[2018-06-26] MEDS: ENALAPRIL MALEATE 10 MG TABLET (FP) PO SCH (10:07)
[2018-06-26] MEDS: RIVASTIGMINE 4.6 MG/24 HOURS TRANSDERMAL PATCH TD SCH (10:07)
[2018-06-26] MEDS: amLODIPine BESYLATE 10 MG TABLET (FP) PO SCH (10:07)
[2018-06-26] MEDS: ASPIRIN 81 MG CHEWABLE TABLETS PO SCH (10:07)
[2018-06-26] MEDS: CARVEDILOL 6.25 MG TABLET (FP) PO SCH (10:07)
[2018-06-26] MEDS: MAGNESIUM OXIDE 400 MG TABLET (FP) PO SCH (10:07)
[2018-06-26] MEDS: HEPARIN NA (PORCINE) 5,000 UNITS/ML 1ML VIAL SQ SCH ×2 (10:07→21:35)
[2018-06-26] MEDS: ANASTROZOLE 1 MG TABLET PO SCH (10:08)
[2018-06-26] MEDS: PIPERACILLIN/TAZOB 3.375 GM 3.375 GM in DEXTROSE 5%-WATER - 50 ML IVPB SCH (11:11)
--- NOTE | 2018-06-26 11:25 | PN ---
Progress Note (short form) - Note Progress Note: no distress refusing po Vital Signs - 24 hr 06/25/18 06/25/18 06/26/18 22:56 23:58 08:39 Temperature 98.0 F 98.4 F Pulse Rate 70 69 Respiratory 20 20 Rate Blood Pressure 140/60 133/68 O2 Sat by Pulse 95 Oximetry (%) Current Medications Generic Name Dose Route Start Last Admin Trade Name Freq PRN Reason Stop Dose Admin Acetaminophen 650 mg 06/25/18 01:17 Tylenol - PO Q6H PRN FEVER/PAIN LEVEL 1-5 Amlodipine Besylate 10 mg 06/25/18 10:00 06/26/18 10:07 Norvasc - PO 10 mg DAILY [facility] Administration Anastrozole 1 mg 06/25/18 10:00 06/26/18 10:08 Arimidex - PO 1 mg DAILY [facility] Administration Aspirin 81 mg 06/25/18 10:00 06/26/18 10:07 Asa - PO 81 mg DAILY [facility] Administration Atorvastatin Calcium 10 mg 06/25/18 22:00 06/25/18 21:29 Lipitor - PO 10 mg HS [facility] Administration Carvedilol 6.25 mg 06/25/18 10:00 06/26/18 10:07 Coreg - PO 6.25 mg DAILY [facility] Administration Enalapril Maleate 20 mg 06/25/18 10:00 06/26/18 10:07 Vasotec - PO 20 mg DAILY [facility] Administration Ergocalciferol 50,000 unit 06/30/18 10:00 Drisdol - PO [place]@1000 [facility] Heparin Sodium (Porcine) 5,000 unit 06/25/18 10:00 06/26/18 10:07 Heparin - SQ 5,000 unit BID [facility] Administration Potassium Chloride/Dextrose/Sod Cl 20 meq in 1,000 mls @ 83 mls/hr 06/25/18 01 :17 06/25/18 21:29 D5-1/2ns+20 Meq Kcl - IV 83 mls/hr ASDIR [facility] Administration Piperacillin Sod/Tazobactam 50 mls @ 100 mls/hr 06/25/18 03:00 06/26/18 10:07 Sod 2.25 gm/ Dextrose IVPB 100 mls/hr Q6H-IV [facility] Administration Protocol Insulin Aspart 1 vial 06/25/18 12:00 06/26/18 06:51 Novolog Vial Sliding Scale - SQ 6 units TIDAC [facility] Administration Protocol Magnesium Oxide 400 mg 06/25/18 10:00 06/26/18 10:07 Mag-Ox - PO 400 mg DAILY [facility] Administration Rivastigmine 1 each 06/25/18 10:00 06/26/18 10:07 Exelon Patch 4.6mg/24 Hours - TD 1 each DAILY [facility] Administration Laboratory Results - last 24 hr 06/25/18 06/26/18 17:12 06:48 POC Glucometer 187 202 S1 S2 RRR lungs decreased Abd- soft NT no edema PLAN continue abx advance diet iv fluids iv antibiotics wbc better pt is dnr / DNI left a msg with guardian for call back Problem List - Problems (1) Diabetes mellitus type 2, uncontrolled, without complications Code(s): E11.65 - TYPE 2 DIABETES MELLITUS WITH HYPERGLYCEMIA (2) Diverticulitis small intestine w/o perforation or abscess w/o bleeding Code(s): K57.12 - DVTRCLI OF SM INT W/O PERFORATION OR ABSCESS W/O BLEEDING (3) Hypertension Code(s): I10 - ESSENTIAL (PRIMARY) HYPERTENSION Qualifiers: Hypertension type: essential hypertension Qualified Code(s): I10 - Essential (primary) hypertension
[2018-06-26] MEDS ORDERED: INSULIN (NOVOLOG) ASPART 100 UNITS/ML 10ML VIAL ONE ×2 (11:54→17:20)
[2018-06-26] MEDS: LACTOBACILLUS ACIDOPHILUS 1 TABLET PO SCH (11:55)
--- NOTE | 2018-06-26 12:05 | PN ---
Progress Note, Physician History of Present Illness: Patient with small bowel diverticulitis, on antibiotics per ID. Seen and examined in bed this morning. She is tolerating clear liquids, denies pain, nausea or vomiting. WBC coming down, BUN/Cr still somewhat elevated but stable. She reports voiding, denies diarrhea. Seems comfortable. - Current Medication List Current Medications: Active Medications Acetaminophen (Tylenol -) 650 mg PO Q6H PRN PRN Reason: FEVER/PAIN LEVEL 1-5 Amlodipine Besylate (Norvasc -) 10 mg PO DAILY [facility] Last Admin: 06/26/18 10:07 Dose: 10 mg Anastrozole (Arimidex -) 1 mg PO DAILY [facility] Last Admin: 06/26/18 10:08 Dose: 1 mg Aspirin (Asa -) 81 mg PO DAILY [facility] Last Admin: 06/26/18 10:07 Dose: 81 mg Atorvastatin Calcium (Lipitor -) 10 mg PO HS [facility] Last Admin: 06/25/18 21:29 Dose: 10 mg Carvedilol (Coreg -) 6.25 mg PO DAILY [facility] Last Admin: 06/26/18 10:07 Dose: 6.25 mg Enalapril Maleate (Vasotec -) 20 mg PO DAILY [facility] Last Admin: 06/26/18 10:07 Dose: 20 mg Ergocalciferol (Drisdol -) 50,000 unit PO Macedo@1000 [facility] Heparin Sodium (Porcine) (Heparin -) 5,000 unit SQ BID [facility] Last Admin: 06/26/18 10:07 Dose: 5,000 unit Potassium Chloride/Dextrose/Sod Cl (D5-1/2ns+20 Meq Kcl -) 20 meq in 1,000 mls @ 83 mls/hr IV ASDIR [facility] Last Admin: 06/25/18 21:29 Dose: 83 mls/hr Piperacillin Sod/Tazobactam (Sod 2.25 gm/ Dextrose) 50 mls @ 100 mls/hr IVPB Q6H-IV [facility]; Protocol Last Admin: 06/26/18 10:07 Dose: 100 mls/hr Insulin Aspart (Novolog Vial Sliding Scale -) 1 vial SQ TIDAC [facility]; Protocol Last Admin: 06/26/18 11:55 Dose: 4 units Lactobacillus Acidophilus (Bacid -) 1 tab PO DAILY [facility] Last Admin: 06/26/18 11:55 Dose: 1 tab Magnesium Oxide (Mag-Ox -) 400 mg PO DAILY [facility] Last Admin: 06/26/18 10:07 Dose: 400 mg Rivastigmine (Exelon Patch 4.6mg/24 Hours -) 1 each TD DAILY [facility] Last Admin: 06/26/18 10:07 Dose: 1 each - Objective Vital Signs: Vital Signs Temperature 98.4 F 06/26/18 08:39 Pulse Rate 69 06/26/18 08:39 Respiratory Rate 20 06/26/18 08:39 Blood Pressure 133/68 06/26/18 08:39 O2 Sat by Pulse Oximetry (%) 95 06/25/18 23:58 Constitutional: Yes: No Distress, Calm, Obese Eyes: Yes: Conjunctiva Clear, EOM Intact HENT: Yes: Atraumatic, Normocephalic Gastrointestinal: Yes: Soft, Abdomen, Obese. No: Tenderness Extremities: No: Cool, Cyanosis Integumentary: No: Jaundice, Rash Neurological: Yes: Alert, Oriented, Confusion (baseline dementia) Labs: CBC, BMP 06/25/18 07:00 06/25/18 07:00 CMP Sodium 137 mmol/L (136-145) 06/25/18 07:00 Potassium 4.0 mmol/L (3.5-5.1) 06/25/18 07:00 Chloride 107 mmol/L (98-107) 06/25/18 07:00 Carbon Dioxide 24 mmol/L (21-32) 06/25/18 07:00 Anion Gap 6 MMOL/L (8-16) L 06/25/18 07:00 BUN 21 mg/dL (7-18) H 06/25/18 07:00 Creatinine 1.3 mg/dL (0.55-1.3) 06/25/18 07:00 Creat Clearance w eGFR 38.57 (>60) 06/25/18 07:00 POC Glucometer 158 UNITS (80-120) 06/26/18 11:52 Random Glucose 175 mg/dL (74-106) H 06/25/18 07:00 Hemoglobin A1c % 8.8 % (4.2-6.3) H 06/23/18 23:15 Calcium 8.4 mg/dL (8.5-10.1) L 06/25/18 07:00 Magnesium 1.9 mg/dL (1.8-2.4) 06/24/18 06:20 Total Bilirubin 0.7 mg/dL (0.2-1) 06/25/18 07:00 AST 26 U/L (15-37) 06/25/18 07:00 ALT 15 U/L (13-61) 06/25/18 07:00 Alkaline Phosphatase 96 U/L (45-117) 06/25/18 07:00 Troponin I < 0.02 ng/ml (0.00-0.05) 06/23/18 18:09 Total Protein 6.4 g/dl (6.4-8.2) 06/25/18 07:00 Albumin 2.9 g/dl (3.4-5.0) L 06/25/18 07:00 Lipase 151 U/L (73-393) 06/23/18 18:09 Microbiology 06/23/18 18:09 Urine Culture - Final Urine - Urine - Catheterized NO GROWTH OBTAINED Problem List - Problems (1) Diverticulitis small intestine w/o perforation or abscess w/o bleeding Assessment/Plan: admitted to medicine antibiotics per ID tolerating clears, continue IVF for now, still somewhat dry? nonnarcotic pain meds prn if needed trend labs GI/DVT prophylaxis advance slowly, no faster than q2-3 meals, as tolerated keep lytes in normal range maintain glucose control continue home meds no indication for any acute surgical intervention will discuss with Dr. Mar Code(s): K57.12 - DVTRCLI OF SM INT W/O PERFORATION OR ABSCESS W/O BLEEDING (2) Hypertension Code(s): I10 - ESSENTIAL (PRIMARY) HYPERTENSION Qualifiers: Hypertension type: essential hypertension Qualified Code(s): I10 - Essential (primary) hypertension (3) Diabetes mellitus type 2, uncontrolled, without complications Code(s): E11.65 - TYPE 2 DIABETES MELLITUS WITH HYPERGLYCEMIA (4) Cancer of left breast Assessment/Plan: on anastrozole only Code(s): C50.912 - MALIGNANT NEOPLASM OF UNSPECIFIED SITE OF LEFT FEMALE BREAST Qualifiers: Breast location: central portion of breast Estrogen receptor status: positive Patient sex: female Qualified Code(s): C50.112 - Malignant neoplasm of central portion of left female breast; Z17.0 - Estrogen receptor positive status [ER+]
--- NOTE | 2018-06-26 13:15 | PN ---
Progress Note, Physician History of Present Illness: stable continues to be confused tolerating liquids sitting in chair - Current Medication List Current Medications: Active Medications Acetaminophen (Tylenol -) 650 mg PO Q6H PRN PRN Reason: FEVER/PAIN LEVEL 1-5 Amlodipine Besylate (Norvasc -) 10 mg PO DAILY [facility] Last Admin: 06/26/18 10:07 Dose: 10 mg Anastrozole (Arimidex -) 1 mg PO DAILY [facility] Last Admin: 06/26/18 10:08 Dose: 1 mg Aspirin (Asa -) 81 mg PO DAILY [facility] Last Admin: 06/26/18 10:07 Dose: 81 mg Atorvastatin Calcium (Lipitor -) 10 mg PO HS [facility] Last Admin: 06/25/18 21:29 Dose: 10 mg Carvedilol (Coreg -) 6.25 mg PO DAILY [facility] Last Admin: 06/26/18 10:07 Dose: 6.25 mg Enalapril Maleate (Vasotec -) 20 mg PO DAILY [facility] Last Admin: 06/26/18 10:07 Dose: 20 mg Ergocalciferol (Drisdol -) 50,000 unit PO [place]@1000 [facility] Heparin Sodium (Porcine) (Heparin -) 5,000 unit SQ BID [facility] Last Admin: 06/26/18 10:07 Dose: 5,000 unit Potassium Chloride/Dextrose/Sod Cl (D5-1/2ns+20 Meq Kcl -) 20 meq in 1,000 mls @ 83 mls/hr IV ASDIR [facility] Last Admin: 06/25/18 21:29 Dose: 83 mls/hr Piperacillin Sod/Tazobactam (Sod 2.25 gm/ Dextrose) 50 mls @ 100 mls/hr IVPB Q6H-IV [facility]; Protocol Last Admin: 06/26/18 10:07 Dose: 100 mls/hr Insulin Aspart (Novolog Vial Sliding Scale -) 1 vial SQ TIDAC [facility]; Protocol Last Admin: 06/26/18 11:55 Dose: 4 units Lactobacillus Acidophilus (Bacid -) 1 tab PO DAILY [facility] Last Admin: 06/26/18 11:55 Dose: 1 tab Magnesium Oxide (Mag-Ox -) 400 mg PO DAILY [facility] Last Admin: 06/26/18 10:07 Dose: 400 mg Rivastigmine (Exelon Patch 4.6mg/24 Hours -) 1 each TD DAILY [facility] Last Admin: 06/26/18 10:07 Dose: 1 each - Objective Vital Signs: Vital Signs Temperature 98.4 F 06/26/18 08:39 Pulse Rate 69 06/26/18 08:39 Respiratory Rate 20 06/26/18 08:39 Blood Pressure 133/68 06/26/18 08:39 O2 Sat by Pulse Oximetry (%) 97 06/26/18 10:00 Constitutional: Yes: No Distress, Calm Cardiovascular: Yes: Regular Rate and Rhythm Respiratory: Yes: Regular, CTA Bilaterally Gastrointestinal: Yes: Normal Bowel Sounds, Soft Musculoskeletal: Yes: WNL Extremities: Yes: WNL Neurological: Yes: Alert, Confusion, Other Psychiatric: Yes: Other Labs: CBC, BMP 06/25/18 07:00 06/25/18 07:00 Assessment/Plan i think the patient could have aspirated and also is probably dehydrated Problem List - Problems (1) Diabetes mellitus type 2, uncontrolled, without complications Code(s): E11.65 - TYPE 2 DIABETES MELLITUS WITH HYPERGLYCEMIA (2) Diverticulitis small intestine w/o perforation or abscess w/o bleeding Code(s): K57.12 - DVTRCLI OF SM INT W/O PERFORATION OR ABSCESS W/O BLEEDING (3) Hypertension Code(s): I10 - ESSENTIAL (PRIMARY) HYPERTENSION Qualifiers: Hypertension type: essential hypertension Qualified Code(s): I10 - Essential (primary) hypertension 4 pna 5 leukocytosis plan continue abx wbc trending down surgery on case continue current mgmt
[2018-06-26] MEDS: D5-1/2NS+20 MEQ KCL - 20 MEQ/1,000 ML INFUS.BAG IV SCH (13:59)
[2018-06-26] MEDS: ATORVASTATIN CA 10 MG TABLET (FP) PO SCH (21:35)
[2018-06-27] MEDS ORDERED: PIPERACILLIN/TAZOBACTAM 2.25 GM VIAL IVPB ONE ×4 (02:51→20:53)
[2018-06-27] MEDS ORDERED: DEXTROSE 5%-WATER - 50 ML IVPB ONE ×4 (02:51→20:53)
[2018-06-27] MEDS: PIPERACILLIN/TAZOB 2.25 GM 2.25 GM in DEXTROSE 5%-WATER - 50 ML IVPB SCH ×4 (02:55→20:55)
[2018-06-27] MEDS: D5-1/2NS+20 MEQ KCL - 20 MEQ/1,000 ML INFUS.BAG IV SCH ×2 (04:45→19:30)
[2018-06-27] MEDS: INSULIN SLIDING SCALE (NOVOLOG) 1 VIAL SQ SCH ×3 (06:38→16:57)
[2018-06-27 07:37] LABS: BASO % 0.6 % (0-2.0); EOS % 5.5 % (0-4.5); HEMATOCRIT 33.6 % (32.4-45.2); HEMOGLOBIN 10.9 GM/dL (10.7-15.3); LYMPH % 16.8 % (8-40); MCH 29.4 pg (25.7-33.7); MCHC 32.6 g/dl (32.0-36.0); MEAN CELL VOLUME 90.2 fl (80-96); MEAN PLT VOLUME 7.8 fl (7.5-11.1); MONO % 9.9 % (3.8-10.2); NEUT % 67.2 % (42.8-82.8); PLATELET COUNT 260 K/MM3 (134-434); RBC 3.72 M/mm3 (3.60-5.2); WHITE BLOOD COUNT 12.7 K/mm3 (4.0-10.0)
[2018-06-27 08:04] LABS: ALK PHOS 101 U/L (45-117); ANION GAP 7 MMOL/L (8-16); BILIRUBIN,TOTAL 0.5 mg/dL (0.2-1); BLOOD UREA NITROGEN 16 mg/dL (7-18); CALCIUM 8.3 mg/dL (8.5-10.1); CHLORIDE 108 mmol/L (98-107); CO2 23 mmol/L (21-32); CREATININE 1.4 mg/dL (0.55-1.3); GLUCOSE,RANDOM 208 mg/dL (74-106); POTASSIUM 4.2 mmol/L (3.5-5.1); SGOT/AST 19 U/L (15-37); SGPT/ALT 18 U/L (13-61); SODIUM 137 mmol/L (136-145); TOT PROT 6.8 g/dl (6.4-8.2)
[2018-06-27] MEDS: HEPARIN NA (PORCINE) 5,000 UNITS/ML 1ML VIAL SQ SCH ×2 (10:01→21:00)
[2018-06-27] MEDS: ASPIRIN 81 MG CHEWABLE TABLETS PO SCH (10:02)
[2018-06-27] MEDS: MAGNESIUM OXIDE 400 MG TABLET (FP) PO SCH (10:02)
[2018-06-27] MEDS: CARVEDILOL 6.25 MG TABLET (FP) PO SCH (10:02)
[2018-06-27] MEDS: LACTOBACILLUS ACIDOPHILUS 1 TABLET PO SCH (10:02)
[2018-06-27] MEDS: amLODIPine BESYLATE 10 MG TABLET (FP) PO SCH (10:02)
[2018-06-27] MEDS: RIVASTIGMINE 4.6 MG/24 HOURS TRANSDERMAL PATCH TD SCH (10:03)
[2018-06-27] MEDS: ENALAPRIL MALEATE 10 MG TABLET (FP) PO SCH (10:03)
[2018-06-27] MEDS: ANASTROZOLE 1 MG TABLET PO SCH (10:03)
--- NOTE | 2018-06-27 11:51 | PN ---
Progress Note (short form) - Note Progress Note: no distress refusing po meds tolerating meals Vital Signs - 24 hr 06/26/18 06/26/18 21:13 23:42 Temperature 98.6 F Pulse Rate 70 Respiratory 20 Rate Blood Pressure 130/70 O2 Sat by Pulse 97 Oximetry (%) Current Medications Generic Name Dose Route Start Last Admin Trade Name Freq PRN Reason Stop Dose Admin Acetaminophen 650 mg 06/25/18 01:17 Tylenol - PO Q6H PRN FEVER/PAIN LEVEL 1-5 Amlodipine Besylate 10 mg 06/25/18 10:00 06/27/18 10:02 Norvasc - PO 10 mg DAILY [facility] Administration Anastrozole 1 mg 06/25/18 10:00 06/27/18 10:03 Arimidex - PO 1 mg DAILY [facility] Administration Aspirin 81 mg 06/25/18 10:00 06/27/18 10:02 Asa - PO 81 mg DAILY [facility] Administration Atorvastatin Calcium 10 mg 06/25/18 22:00 06/26/18 21:35 Lipitor - PO 10 mg HS [facility] Administration Carvedilol 6.25 mg 06/25/18 10:00 06/27/18 10:02 Coreg - PO 6.25 mg DAILY [facility] Administration Enalapril Maleate 20 mg 06/25/18 10:00 06/27/18 10:03 Vasotec - PO 20 mg DAILY [facility] Administration Ergocalciferol 50,000 unit 06/30/18 10:00 Drisdol - PO [place]@1000 [facility] Heparin Sodium (Porcine) 5,000 unit 06/25/18 10:00 06/27/18 10:01 Heparin - SQ 5,000 unit BID [facility] Administration Potassium Chloride/Dextrose/Sod Cl 20 meq in 1,000 mls @ 83 mls/hr 06/25/18 01 :17 06/27/18 04:45 D5-1/2ns+20 Meq Kcl - IV 83 mls/hr ASDIR [facility] Administration Piperacillin Sod/Tazobactam 50 mls @ 100 mls/hr 06/25/18 03:00 06/27/18 09:59 Sod 2.25 gm/ Dextrose IVPB 100 mls/hr Q6H-IV [facility] Administration Protocol Insulin Aspart 1 vial 06/25/18 12:00 06/27/18 06:38 Novolog Vial Sliding Scale - SQ 6 units TIDAC [facility] Administration Protocol Lactobacillus Acidophilus 1 tab 06/26/18 11:30 06/27/18 10:02 Bacid - PO 1 tab DAILY [facility] Administration Magnesium Oxide 400 mg 06/25/18 10:00 06/27/18 10:02 Mag-Ox - PO 400 mg DAILY [facility] Administration Rivastigmine 1 each 06/25/18 10:00 06/27/18 10:03 Exelon Patch 4.6mg/24 Hours - TD 1 each DAILY [facility] Administration Laboratory Results - last 24 hr 06/26/18 06/26/18 06/27/18 11:52 16:39 06:50 WBC 12.7 H RBC 3.72 Hgb 10.9 Hct 33.6 MCV 90.2 MCH 29.4 MCHC 32.6 RDW 14.0 Plt Count 260 MPV 7.8 Absolute Neuts (auto) 8.5 H Neutrophils % 67.2 Lymphocytes % 16.8 Monocytes % 9.9 Eosinophils % 5.5 H Basophils % 0.6 Nucleated RBC % 0 Sodium Potassium Chloride Carbon Dioxide Anion Gap BUN Creatinine Creat Clearance w eGFR POC Glucometer 158 288 Random Glucose Calcium Total Bilirubin AST ALT Alkaline Phosphatase Total Protein Albumin 06/27/18 06:50 WBC RBC Hgb Hct MCV MCH MCHC RDW Plt Count MPV Absolute Neuts (auto) Neutrophils % Lymphocytes % Monocytes % Eosinophils % Basophils % Nucleated RBC % Sodium 137 Potassium 4.2 Chloride 108 H Carbon Dioxide 23 Anion Gap 7 L BUN 16 Creatinine 1.4 H Creat Clearance w eGFR 35.41 POC Glucometer Random Glucose 208 H Calcium 8.3 L Total Bilirubin 0.5 AST 19 ALT 18 Alkaline Phosphatase 101 Total Protein 6.8 Albumin 3.0 L S1 S2 RRR lungs decreased Abd- soft, mild tender abdomen no edema PLAN continue abx advance diet iv fluids iv antibiotics wbc better pt is dnr / DNI spoke with guardian today -- Keeley Boyle-- [phone] Problem List - Problems (1) Diabetes mellitus type 2, uncontrolled, without complications Code(s): E11.65 - TYPE 2 DIABETES MELLITUS WITH HYPERGLYCEMIA (2) Diverticulitis small intestine w/o perforation or abscess w/o bleeding Code(s): K57.12 - DVTRCLI OF SM INT W/O PERFORATION OR ABSCESS W/O BLEEDING (3) Hypertension Code(s): I10 - ESSENTIAL (PRIMARY) HYPERTENSION Qualifiers: Hypertension type: essential hypertension Qualified Code(s): I10 - Essential (primary) hypertension
[2018-06-27] MEDS ORDERED: INSULIN (NOVOLOG) ASPART 100 UNITS/ML 10ML VIAL ONE ×2 (12:19→16:56)
--- NOTE | 2018-06-27 14:59 | PN ---
Progress Note, Physician History of Present Illness: stable - Current Medication List Current Medications: Active Medications Acetaminophen (Tylenol -) 650 mg PO Q6H PRN PRN Reason: FEVER/PAIN LEVEL 1-5 Amlodipine Besylate (Norvasc -) 10 mg PO DAILY [facility] Last Admin: 06/27/18 10:02 Dose: 10 mg Anastrozole (Arimidex -) 1 mg PO DAILY [facility] Last Admin: 06/27/18 10:03 Dose: 1 mg Aspirin (Asa -) 81 mg PO DAILY [facility] Last Admin: 06/27/18 10:02 Dose: 81 mg Atorvastatin Calcium (Lipitor -) 10 mg PO HS [facility] Last Admin: 06/26/18 21:35 Dose: 10 mg Carvedilol (Coreg -) 6.25 mg PO DAILY [facility] Last Admin: 06/27/18 10:02 Dose: 6.25 mg Enalapril Maleate (Vasotec -) 20 mg PO DAILY [facility] Last Admin: 06/27/18 10:03 Dose: 20 mg Ergocalciferol (Drisdol -) 50,000 unit PO [place]@1000 [facility] Heparin Sodium (Porcine) (Heparin -) 5,000 unit SQ BID [facility] Last Admin: 06/27/18 10:01 Dose: 5,000 unit Potassium Chloride/Dextrose/Sod Cl (D5-1/2ns+20 Meq Kcl -) 20 meq in 1,000 mls @ 83 mls/hr IV ASDIR [facility] Last Admin: 06/27/18 04:45 Dose: 83 mls/hr Piperacillin Sod/Tazobactam (Sod 2.25 gm/ Dextrose) 50 mls @ 100 mls/hr IVPB Q6H-IV [facility]; Protocol Last Admin: 06/27/18 09:59 Dose: 100 mls/hr Insulin Aspart (Novolog Vial Sliding Scale -) 1 vial SQ TIDAC [facility]; Protocol Last Admin: 06/27/18 12:13 Dose: 11 units Lactobacillus Acidophilus (Bacid -) 1 tab PO DAILY [facility] Last Admin: 06/27/18 10:02 Dose: 1 tab Magnesium Oxide (Mag-Ox -) 400 mg PO DAILY [facility] Last Admin: 06/27/18 10:02 Dose: 400 mg Rivastigmine (Exelon Patch 4.6mg/24 Hours -) 1 each TD DAILY [facility] Last Admin: 06/27/18 10:03 Dose: 1 each - Objective Vital Signs: Vital Signs Temperature 98.5 F 06/27/18 14:20 Pulse Rate 80 06/27/18 14:20 Respiratory Rate 16 06/27/18 09:00 Blood Pressure 143/75 06/27/18 14:20 O2 Sat by Pulse Oximetry (%) 95 06/27/18 09:00 Labs: CBC, BMP 06/27/18 06:50 06/27/18 06:50
--- NOTE | 2018-06-27 19:39 | PN ---
Progress Note, Physician History of Present Illness: Patient with small bowel diverticulitis, on antibiotics per ID. Seen and examined sitting in chair by nurses station. She is tolerating soft diet, denies pain, nausea or vomiting. Pt offers no complaints. - Current Medication List Current Medications: Active Medications Acetaminophen (Tylenol -) 650 mg PO Q6H PRN PRN Reason: FEVER/PAIN LEVEL 1-5 Amlodipine Besylate (Norvasc -) 10 mg PO DAILY [facility] Last Admin: 06/27/18 10:02 Dose: 10 mg Anastrozole (Arimidex -) 1 mg PO DAILY [facility] Last Admin: 06/27/18 10:03 Dose: 1 mg Aspirin (Asa -) 81 mg PO DAILY [facility] Last Admin: 06/27/18 10:02 Dose: 81 mg Atorvastatin Calcium (Lipitor -) 10 mg PO HS [facility] Last Admin: 06/26/18 21:35 Dose: 10 mg Carvedilol (Coreg -) 6.25 mg PO DAILY [facility] Last Admin: 06/27/18 10:02 Dose: 6.25 mg Enalapril Maleate (Vasotec -) 20 mg PO DAILY [facility] Last Admin: 06/27/18 10:03 Dose: 20 mg Ergocalciferol (Drisdol -) 50,000 unit PO [place]@1000 [facility] Heparin Sodium (Porcine) (Heparin -) 5,000 unit SQ BID [facility] Last Admin: 06/27/18 10:01 Dose: 5,000 unit Potassium Chloride/Dextrose/Sod Cl (D5-1/2ns+20 Meq Kcl -) 20 meq in 1,000 mls @ 83 mls/hr IV ASDIR [facility] Last Admin: 06/27/18 04:45 Dose: 83 mls/hr Piperacillin Sod/Tazobactam (Sod 2.25 gm/ Dextrose) 50 mls @ 100 mls/hr IVPB Q6H-IV [facility]; Protocol Last Admin: 06/27/18 15:12 Dose: 100 mls/hr Insulin Aspart (Novolog Vial Sliding Scale -) 1 vial SQ TIDAC [facility]; Protocol Last Admin: 06/27/18 16:57 Dose: 4 units Lactobacillus Acidophilus (Bacid -) 1 tab PO DAILY [facility] Last Admin: 06/27/18 10:02 Dose: 1 tab Magnesium Oxide (Mag-Ox -) 400 mg PO DAILY [facility] Last Admin: 06/27/18 10:02 Dose: 400 mg Rivastigmine (Exelon Patch 4.6mg/24 Hours -) 1 each TD DAILY [facility] Last Admin: 06/27/18 10:03 Dose: 1 each - Objective Vital Signs: Vital Signs Temperature 98.5 F 06/27/18 14:20 Pulse Rate 80 06/27/18 14:20 Respiratory Rate 16 06/27/18 09:00 Blood Pressure 143/75 06/27/18 14:20 O2 Sat by Pulse Oximetry (%) 95 06/27/18 09:00 Constitutional: Yes: Well Nourished, No Distress, Calm Eyes: Yes: Conjunctiva Clear, EOM Intact HENT: Yes: Atraumatic, Normocephalic Gastrointestinal: Yes: Soft, Abdomen, Obese. No: Tenderness Extremities: No: Cool, Cyanosis Integumentary: No: Jaundice, Rash Neurological: Yes: Alert, Confusion (baseline dementia) Labs: CBC, BMP 06/27/18 06:50 06/27/18 06:50 BUN down but Cr up wbc sideways Problem List - Problems (1) Diverticulitis small intestine w/o perforation or abscess w/o bleeding Assessment/Plan: admitted to medicine antibiotics per ID tolerating soft diet nonnarcotic pain meds prn if needed trend labs may still be relatively dry - diverticulitis may cause some third-spacing, monitor BUN/Cr closely, consider continuing some IV fluids if not self- hydrating well GI/DVT prophylaxis keep lytes in normal range maintain glucose control continue home meds no indication for any acute surgical intervention Code(s): K57.12 - DVTRCLI OF SM INT W/O PERFORATION OR ABSCESS W/O BLEEDING (2) Hypertension Code(s): I10 - ESSENTIAL (PRIMARY) HYPERTENSION Qualifiers: Hypertension type: essential hypertension Qualified Code(s): I10 - Essential (primary) hypertension (3) Diabetes mellitus type 2, uncontrolled, without complications Code(s): E11.65 - TYPE 2 DIABETES MELLITUS WITH HYPERGLYCEMIA (4) Cancer of left breast Code(s): C50.912 - MALIGNANT NEOPLASM OF UNSPECIFIED SITE OF LEFT FEMALE BREAST Qualifiers: Breast location: central portion of breast Estrogen receptor status: positive Patient sex: female Qualified Code(s): C50.112 - Malignant neoplasm of central portion of left female breast; Z17.0 - Estrogen receptor positive status [ER+]
[2018-06-27] MEDS: ATORVASTATIN CA 10 MG TABLET (FP) PO SCH (21:00)
[2018-06-28] MEDS ORDERED: PIPERACILLIN/TAZOBACTAM 2.25 GM VIAL IVPB ONE ×5 (03:34→20:38)
[2018-06-28] MEDS ORDERED: DEXTROSE 5%-WATER - 50 ML IVPB ONE ×5 (03:34→20:38)
[2018-06-28] MEDS: PIPERACILLIN/TAZOB 2.25 GM 2.25 GM in DEXTROSE 5%-WATER - 50 ML IVPB SCH ×4 (03:39→20:40)
[2018-06-28] MEDS: INSULIN SLIDING SCALE (NOVOLOG) 1 VIAL SQ SCH ×3 (06:27→17:10)
[2018-06-28] MEDS: D5-1/2NS+20 MEQ KCL - 20 MEQ/1,000 ML INFUS.BAG IV SCH ×2 (07:02→21:18)
[2018-06-28 08:33] LABS: HEMATOCRIT 34.5 % (32.4-45.2); HEMOGLOBIN 11.3 GM/dL (10.7-15.3); MCH 29.4 pg (25.7-33.7); MCHC 32.6 g/dl (32.0-36.0); MEAN CELL VOLUME 90.3 fl (80-96); MEAN PLT VOLUME 7.8 fl (7.5-11.1); PLATELET COUNT 268 K/MM3 (134-434); RBC 3.83 M/mm3 (3.60-5.2); WHITE BLOOD COUNT 12.5 K/mm3 (4.0-10.0)
[2018-06-28] MEDS: RIVASTIGMINE 4.6 MG/24 HOURS TRANSDERMAL PATCH TD SCH (09:56)
[2018-06-28] MEDS: ENALAPRIL MALEATE 10 MG TABLET (FP) PO SCH (09:57)
[2018-06-28] MEDS: ANASTROZOLE 1 MG TABLET PO SCH (09:57)
[2018-06-28] MEDS: LACTOBACILLUS ACIDOPHILUS 1 TABLET PO SCH (09:57)
[2018-06-28] MEDS: ASPIRIN 81 MG CHEWABLE TABLETS PO SCH (09:57)
[2018-06-28] MEDS: HEPARIN NA (PORCINE) 5,000 UNITS/ML 1ML VIAL SQ SCH ×2 (09:57→21:18)
[2018-06-28] MEDS: CARVEDILOL 6.25 MG TABLET (FP) PO SCH (09:58)
[2018-06-28] MEDS: amLODIPine BESYLATE 10 MG TABLET (FP) PO SCH (09:58)
[2018-06-28] MEDS: MAGNESIUM OXIDE 400 MG TABLET (FP) PO SCH (09:58)
[2018-06-28] MEDS ORDERED: INSULIN (NOVOLOG) ASPART 100 UNITS/ML 10ML VIAL ONE (11:28)
--- NOTE | 2018-06-28 11:44 | PN ---
Progress Note (short form) - Note Progress Note: pt seen/examined chart reviewed awake/ comfortable eating but refusing to take po meds !!! sitting in chair. Vital Signs Temp 98.3 F 06/28/18 05:00 Pulse 76 06/28/18 05:00 Resp 16 06/28/18 05:00 BP 134/69 06/28/18 05:00 Pulse Ox 95 06/27/18 22:00 Intake & Output 06/27/18 06/27/18 06/28/18 11:59 23:59 11:59 Intake Total 250 1666 946 Balance 250 1666 946 Weight 147 lb 1 oz 146 lb 14.4 oz Intake: IV 896 896 D5-1/2NS+20 MEQ KCL - 20 896 896 meq In 1,000 ml @ 83 mls/ hr IV ASDIR [facility] Rx#: [id number] IVPB 150 50 Oral 250 620 Other: Voiding Method Toilet Toilet # Unmeasured Voids Void 2 2 2 Bowel Movement No # Bowel Movements 1 Weight Measurement Method Built in Bedscale Built in Bedscale Active Medications Acetaminophen (Tylenol -) 650 mg PO Q6H PRN PRN Reason: FEVER/PAIN LEVEL 1-5 Amlodipine Besylate (Norvasc -) 10 mg PO DAILY [facility] Last Admin: 06/28/18 09:58 Dose: 10 mg Anastrozole (Arimidex -) 1 mg PO DAILY [facility] Last Admin: 06/28/18 09:57 Dose: 1 mg Aspirin (Asa -) 81 mg PO DAILY [facility] Last Admin: 06/28/18 09:57 Dose: 81 mg Atorvastatin Calcium (Lipitor -) 10 mg PO HS [facility] Last Admin: 06/27/18 21:00 Dose: 10 mg Carvedilol (Coreg -) 6.25 mg PO DAILY [facility] Last Admin: 06/28/18 09:58 Dose: 6.25 mg Enalapril Maleate (Vasotec -) 20 mg PO DAILY [facility] Last Admin: 06/28/18 09:57 Dose: 20 mg Ergocalciferol (Drisdol -) 50,000 unit PO [place]@1000 [facility] Heparin Sodium (Porcine) (Heparin -) 5,000 unit SQ BID [facility] Last Admin: 06/28/18 09:57 Dose: 5,000 unit Potassium Chloride/Dextrose/Sod Cl (D5-1/2ns+20 Meq Kcl -) 20 meq in 1,000 mls @ 83 mls/hr IV [facility]IR [facility] Last Admin: 06/28/18 07:02 Dose: 83 mls/hr Piperacillin Sod/Tazobactam (Sod 2.25 gm/ Dextrose) 50 mls @ 100 mls/hr IVPB Q6H-IV [facility]; Protocol Last Admin: 06/28/18 09:58 Dose: 100 mls/hr Insulin Aspart (Novolog Vial Sliding Scale -) 1 vial SQ TIDAC [facility]; Protocol Last Admin: 06/28/18 11:32 Dose: 6 units Lactobacillus Acidophilus (Bacid -) 1 tab PO DAILY [facility] Last Admin: 06/28/18 09:57 Dose: 1 tab Magnesium Oxide (Mag-Ox -) 400 mg PO DAILY [facility] Last Admin: 06/28/18 09:58 Dose: 400 mg Rivastigmine (Exelon Patch 4.6mg/24 Hours -) 1 each TD DAILY [facility] Last Admin: 06/28/18 09:56 Dose: 1 each CBC, BMP 06/28/18 07:30 06/27/18 06:50 Physical Exam. S1 S2 RRR lungs decreased Abd- soft, bs + no edema. Neuro- awake PLAN better advance diet as tolerated iv fluids iv antibiotics as refsing po abx f/u labs pt is dnr / DNI . will follow if better -- anticipate d/c in 1-2 days.
--- NOTE | 2018-06-28 15:22 | PN ---
Progress Note, Physician History of Present Illness: Patient with small bowel diverticulitis, on antibiotics per ID. Seen and examined sitting in chair by nurses station. She is tolerating soft diet, denies pain, nausea or vomiting. Pt c/o pain, difficulty with swallowing. She says it has been present for quite a while, but comes and goes. She is still able to eat/drink. - Current Medication List Current Medications: Active Medications Acetaminophen (Tylenol -) 650 mg PO Q6H PRN PRN Reason: FEVER/PAIN LEVEL 1-5 Amlodipine Besylate (Norvasc -) 10 mg PO DAILY [facility] Last Admin: 06/28/18 09:58 Dose: 10 mg Anastrozole (Arimidex -) 1 mg PO DAILY [facility] Last Admin: 06/28/18 09:57 Dose: 1 mg Aspirin (Asa -) 81 mg PO DAILY [facility] Last Admin: 06/28/18 09:57 Dose: 81 mg Atorvastatin Calcium (Lipitor -) 10 mg PO HS [facility] Last Admin: 06/27/18 21:00 Dose: 10 mg Carvedilol (Coreg -) 6.25 mg PO DAILY [facility] Last Admin: 06/28/18 09:58 Dose: 6.25 mg Enalapril Maleate (Vasotec -) 20 mg PO DAILY [facility] Last Admin: 06/28/18 09:57 Dose: 20 mg Ergocalciferol (Drisdol -) 50,000 unit PO [place]o@1000 [facility] Heparin Sodium (Porcine) (Heparin -) 5,000 unit SQ BID [facility] Last Admin: 06/28/18 09:57 Dose: 5,000 unit Potassium Chloride/Dextrose/Sod Cl (D5-1/2ns+20 Meq Kcl -) 20 meq in 1,000 mls @ 83 mls/hr IV ASDIR [facility] Last Admin: 06/28/18 07:02 Dose: 83 mls/hr Piperacillin Sod/Tazobactam (Sod 2.25 gm/ Dextrose) 50 mls @ 100 mls/hr IVPB Q6H-IV [facility]; Protocol Last Admin: 06/28/18 09:58 Dose: 100 mls/hr Insulin Aspart (Novolog Vial Sliding Scale -) 1 vial SQ TIDAC [facility]; Protocol Last Admin: 06/28/18 11:32 Dose: 6 units Lactobacillus Acidophilus (Bacid -) 1 tab PO DAILY [facility] Last Admin: 06/28/18 09:57 Dose: 1 tab Magnesium Oxide (Mag-Ox -) 400 mg PO DAILY [facility] Last Admin: 06/28/18 09:58 Dose: 400 mg Rivastigmine (Exelon Patch 4.6mg/24 Hours -) 1 each TD DAILY [facility] Last Admin: 06/28/18 09:56 Dose: 1 each - Objective Vital Signs: Vital Signs Temperature 98.0 F 06/28/18 09:00 Pulse Rate 87 06/28/18 09:00 Respiratory Rate 18 06/28/18 09:00 Blood Pressure 143/87 06/28/18 09:00 O2 Sat by Pulse Oximetry (%) 95 06/28/18 09:00 Constitutional: Yes: Well Nourished, No Distress, Calm Eyes: Yes: Conjunctiva Clear, EOM Intact HENT: Yes: Atraumatic, Normocephalic Gastrointestinal: Yes: Soft, Abdomen, Obese. No: Tenderness Extremities: No: Cool, Cyanosis Integumentary: No: Jaundice, Rash Neurological: Yes: Alert, Confusion (baseline dementia) Labs: CBC 06/28/18 07:30 no new chemistries - BUN/Cr not repeated wbc down slightly Problem List - Problems (1) Diverticulitis small intestine w/o perforation or abscess w/o bleeding Assessment/Plan: admitted to medicine antibiotics per ID - will need to complete course per them tolerating soft diet nonnarcotic pain meds prn if needed trend labs may still be relatively dry - diverticulitis may cause some third-spacing, monitor BUN/Cr closely, consider continuing some IV fluids if not self- hydrating well keep lytes in normal range maintain glucose control GI/DVT prophylaxis continue home meds no indication for any acute surgical intervention Code(s): K57.12 - DVTRCLI OF SM INT W/O PERFORATION OR ABSCESS W/O BLEEDING (2) Hypertension Code(s): I10 - ESSENTIAL (PRIMARY) HYPERTENSION Qualifiers: Hypertension type: essential hypertension Qualified Code(s): I10 - Essential (primary) hypertension (3) Diabetes mellitus type 2, uncontrolled, without complications Code(s): E11.65 - TYPE 2 DIABETES MELLITUS WITH HYPERGLYCEMIA (4) Cancer of left breast Code(s): C50.912 - MALIGNANT NEOPLASM OF UNSPECIFIED SITE OF LEFT FEMALE BREAST Qualifiers: Breast location: central portion of breast Estrogen receptor status: positive Patient sex: female Qualified Code(s): C50.112 - Malignant neoplasm of central portion of left female breast; Z17.0 - Estrogen receptor positive status [ER+]
--- NOTE | 2018-06-28 17:05 | PN ---
Progress Note, Physician - Current Medication List Current Medications: Active Medications Acetaminophen (Tylenol -) 650 mg PO Q6H PRN PRN Reason: FEVER/PAIN LEVEL 1-5 Amlodipine Besylate (Norvasc -) 10 mg PO DAILY [facility] Last Admin: 06/28/18 09:58 Dose: 10 mg Anastrozole (Arimidex -) 1 mg PO DAILY [facility] Last Admin: 06/28/18 09:57 Dose: 1 mg Aspirin (Asa -) 81 mg PO DAILY [facility] Last Admin: 06/28/18 09:57 Dose: 81 mg Atorvastatin Calcium (Lipitor -) 10 mg PO HS [facility] Last Admin: 06/27/18 21:00 Dose: 10 mg Carvedilol (Coreg -) 6.25 mg PO DAILY [facility] Last Admin: 06/28/18 09:58 Dose: 6.25 mg Enalapril Maleate (Vasotec -) 20 mg PO DAILY [facility] Last Admin: 06/28/18 09:57 Dose: 20 mg Ergocalciferol (Drisdol -) 50,000 unit PO Macedo@1000 [facility] Heparin Sodium (Porcine) (Heparin -) 5,000 unit SQ BID [facility] Last Admin: 06/28/18 09:57 Dose: 5,000 unit Potassium Chloride/Dextrose/Sod Cl (D5-1/2ns+20 Meq Kcl -) 20 meq in 1,000 mls @ 83 mls/hr IV ASDIR [facility] Last Admin: 06/28/18 07:02 Dose: 83 mls/hr Piperacillin Sod/Tazobactam (Sod 2.25 gm/ Dextrose) 50 mls @ 100 mls/hr IVPB Q6H-IV [facility]; Protocol Last Admin: 06/28/18 15:34 Dose: 100 mls/hr Insulin Aspart (Novolog Vial Sliding Scale -) 1 vial SQ TIDAC [facility]; Protocol Last Admin: 06/28/18 11:32 Dose: 6 units Lactobacillus Acidophilus (Bacid -) 1 tab PO DAILY [facility] Last Admin: 06/28/18 09:57 Dose: 1 tab Magnesium Oxide (Mag-Ox -) 400 mg PO DAILY [facility] Last Admin: 06/28/18 09:58 Dose: 400 mg Rivastigmine (Exelon Patch 4.6mg/24 Hours -) 1 each TD DAILY [facility] Last Admin: 06/28/18 09:56 Dose: 1 each - Objective Vital Signs: Vital Signs Temperature 97.8 F 06/28/18 15:27 Pulse Rate 78 06/28/18 15:27 Respiratory Rate 18 06/28/18 09:00 Blood Pressure 153/76 06/28/18 15:27 O2 Sat by Pulse Oximetry (%) 95 06/28/18 09:00 Labs: CBC, BMP 06/28/18 07:30 06/27/18 06:50
[2018-06-28] MEDS: ATORVASTATIN CA 10 MG TABLET (FP) PO SCH (21:18)
[2018-06-29] MEDS ORDERED: PIPERACILLIN/TAZOBACTAM 2.25 GM VIAL IVPB ONE ×3 (02:05→14:30)
[2018-06-29] MEDS ORDERED: DEXTROSE 5%-WATER - 50 ML IVPB ONE ×3 (02:06→14:30)
[2018-06-29] MEDS: PIPERACILLIN/TAZOB 2.25 GM 2.25 GM in DEXTROSE 5%-WATER - 50 ML IVPB SCH ×3 (02:28→14:32)
[2018-06-29] MEDS: INSULIN SLIDING SCALE (NOVOLOG) 1 VIAL SQ SCH ×3 (06:20→16:44)
[2018-06-29] MEDS: LACTOBACILLUS ACIDOPHILUS 1 TABLET PO SCH (09:01)
[2018-06-29] MEDS: ASPIRIN 81 MG CHEWABLE TABLETS PO SCH (09:01)
[2018-06-29] MEDS: MAGNESIUM OXIDE 400 MG TABLET (FP) PO SCH (09:01)
[2018-06-29] MEDS: CARVEDILOL 6.25 MG TABLET (FP) PO SCH (09:01)
[2018-06-29] MEDS: D5-1/2NS+20 MEQ KCL - 20 MEQ/1,000 ML INFUS.BAG IV SCH (09:01)
[2018-06-29] MEDS: amLODIPine BESYLATE 10 MG TABLET (FP) PO SCH (09:01)
[2018-06-29] MEDS: HEPARIN NA (PORCINE) 5,000 UNITS/ML 1ML VIAL SQ SCH ×2 (09:01→21:08)
[2018-06-29] MEDS: ENALAPRIL MALEATE 10 MG TABLET (FP) PO SCH (09:02)
[2018-06-29] MEDS: RIVASTIGMINE 4.6 MG/24 HOURS TRANSDERMAL PATCH TD SCH (09:02)
[2018-06-29] MEDS: ANASTROZOLE 1 MG TABLET PO SCH (09:02)
[2018-06-29] MEDS ORDERED: INSULIN (NOVOLOG) ASPART 100 UNITS/ML 10ML VIAL ONE ×2 (10:58→16:43)
--- NOTE | 2018-06-29 11:58 | PN ---
Progress Note (short form) - Note Progress Note: no distress took her meds today and is eating better Vital Signs - 24 hr 06/28/18 06/28/18 06/28/18 15:27 19:00 21:00 Temperature 97.8 F 97.8 F Pulse Rate 78 78 Respiratory 20 Rate Blood Pressure 153/76 168/88 O2 Sat by Pulse 96 Oximetry (%) 06/28/18 06/29/18 06/29/18 23:00 08:50 09:00 Temperature 97.9 F 97.5 F L Pulse Rate 74 77 Respiratory 19 18 Rate Blood Pressure 149/78 144/67 O2 Sat by Pulse 95 Oximetry (%) Current Medications Generic Name Dose Route Start Last Admin Trade Name Freq PRN Reason Stop Dose Admin Acetaminophen 650 mg 06/25/18 01:17 Tylenol - PO Q6H PRN FEVER/PAIN LEVEL 1-5 Amlodipine Besylate 10 mg 06/25/18 10:00 06/29/18 09:01 Norvasc - PO 10 mg DAILY [facility] Administration Anastrozole 1 mg 06/25/18 10:00 06/29/18 09:02 Arimidex - PO 1 mg DAILY [facility] Administration Aspirin 81 mg 06/25/18 10:00 06/29/18 09:01 Asa - PO 81 mg DAILY [facility] Administration Atorvastatin Calcium 10 mg 06/25/18 22:00 06/28/18 21:18 Lipitor - PO 10 mg HS [facility] Administration Carvedilol 6.25 mg 06/25/18 10:00 06/29/18 09:01 Coreg - PO 6.25 mg DAILY [facility] Administration Enalapril Maleate 20 mg 06/25/18 10:00 06/29/18 09:02 Vasotec - PO 20 mg DAILY [facility] Administration Ergocalciferol 50,000 unit 06/30/18 10:00 Drisdol - PO [place]@1000 [facility] Heparin Sodium (Porcine) 5,000 unit 06/25/18 10:00 06/29/18 09:01 Heparin - SQ 5,000 unit BID [facility] Administration Potassium Chloride/Dextrose/Sod Cl 20 meq in 1,000 mls @ 83 mls/hr 06/25/18 01 :17 06/29/18 09:01 D5-1/2ns+20 Meq Kcl - IV 83 mls/hr ASDIR [facility] Administration Piperacillin Sod/Tazobactam 50 mls @ 100 mls/hr 06/25/18 03:00 06/29/18 08:55 Sod 2.25 gm/ Dextrose IVPB 100 mls/hr Q6H-IV [facility] Administration Protocol Insulin Aspart 1 vial 06/25/18 12:00 06/29/18 11:02 Novolog Vial Sliding Scale - SQ 6 units TIDAC [facility] Administration Protocol Lactobacillus Acidophilus 1 tab 06/26/18 11:30 06/29/18 09:01 Bacid - PO 1 tab DAILY [facility] Administration Magnesium Oxide 400 mg 06/25/18 10:00 06/29/18 09:01 Mag-Ox - PO 400 mg DAILY [facility] Administration Rivastigmine 1 each 06/25/18 10:00 06/29/18 09:02 Exelon Patch 4.6mg/24 Hours - TD 1 each DAILY [facility] Administration Laboratory Results - last 24 hr 06/28/18 06/29/18 06/29/18 16:29 05:23 10:52 POC Glucometer 215 206 248 S1 S2 RRR lungs decreased Abd- soft, mild tender abdomen no edema PLAN continue abx-- complete tomorrow diet as tolerated iv antibiotics wbc better pt is dnr / DNI dc planning on Sunday once antibiotics completed Problem List - Problems (1) Diabetes mellitus type 2, uncontrolled, without complications Code(s): E11.65 - TYPE 2 DIABETES MELLITUS WITH HYPERGLYCEMIA (2) Diverticulitis small intestine w/o perforation or abscess w/o bleeding Code(s): K57.12 - DVTRCLI OF SM INT W/O PERFORATION OR ABSCESS W/O BLEEDING (3) Hypertension Code(s): I10 - ESSENTIAL (PRIMARY) HYPERTENSION Qualifiers: Hypertension type: essential hypertension Qualified Code(s): I10 - Essential (primary) hypertension
--- NOTE | 2018-06-29 16:14 | PN ---
Progress Note, Physician History of Present Illness: Pt seen and examined. Events reviewed. Case d/w Dr. Peña. She is alert, without distress and responsive. Reported to have taken her meds today. She denies abd pain/n/v/d. Remains afebrile. - Current Medication List Current Medications: Active Medications Acetaminophen (Tylenol -) 650 mg PO Q6H PRN PRN Reason: FEVER/PAIN LEVEL 1-5 Amlodipine Besylate (Norvasc -) 10 mg PO DAILY [facility] Last Admin: 06/29/18 09:01 Dose: 10 mg Anastrozole (Arimidex -) 1 mg PO DAILY [facility] Last Admin: 06/29/18 09:02 Dose: 1 mg Aspirin (Asa -) 81 mg PO DAILY [facility] Last Admin: 06/29/18 09:01 Dose: 81 mg Atorvastatin Calcium (Lipitor -) 10 mg PO HS [facility] Last Admin: 06/28/18 21:18 Dose: 10 mg Carvedilol (Coreg -) 6.25 mg PO DAILY [facility] Last Admin: 06/29/18 09:01 Dose: 6.25 mg Enalapril Maleate (Vasotec -) 20 mg PO DAILY [facility] Last Admin: 06/29/18 09:02 Dose: 20 mg Ergocalciferol (Drisdol -) 50,000 unit PO Macedo@1000 [facility] Heparin Sodium (Porcine) (Heparin -) 5,000 unit SQ BID [facility] Last Admin: 06/29/18 09:01 Dose: 5,000 unit Potassium Chloride/Dextrose/Sod Cl (D5-1/2ns+20 Meq Kcl -) 20 meq in 1,000 mls @ 83 mls/hr IV ASDIR [facility] Last Admin: 06/29/18 09:01 Dose: 83 mls/hr Piperacillin Sod/Tazobactam (Sod 2.25 gm/ Dextrose) 50 mls @ 100 mls/hr IVPB Q6H-IV [facility]; Protocol Last Admin: 06/29/18 14:32 Dose: 100 mls/hr Insulin Aspart (Novolog Vial Sliding Scale -) 1 vial SQ TIDAC [facility]; Protocol Last Admin: 06/29/18 11:02 Dose: 6 units Lactobacillus Acidophilus (Bacid -) 1 tab PO DAILY [facility] Last Admin: 06/29/18 09:01 Dose: 1 tab Magnesium Oxide (Mag-Ox -) 400 mg PO DAILY [facility] Last Admin: 06/29/18 09:01 Dose: 400 mg Rivastigmine (Exelon Patch 4.6mg/24 Hours -) 1 each TD DAILY [facility] Last Admin: 06/29/18 09:02 Dose: 1 each - Objective Vital Signs: Vital Signs Temperature 97.5 F L 06/29/18 08:50 Pulse Rate 77 06/29/18 08:50 Respiratory Rate 18 06/29/18 08:50 Blood Pressure 144/67 06/29/18 08:50 O2 Sat by Pulse Oximetry (%) 95 06/29/18 09:00 Constitutional: Yes: No Distress, Calm Cardiovascular: Yes: Regular Rate and Rhythm Respiratory: Yes: Regular Gastrointestinal: Yes: Normal Bowel Sounds, Soft Genitourinary: Yes: WNL Extremities: Yes: WNL Edema: No Integumentary: Yes: WNL Labs: CBC, BMP 06/28/18 07:30 06/27/18 06:50 Microbiology 06/23/18 18:09 Urine - Urine - Catheterized Urine Culture - Final NO GROWTH OBTAINED Problem List - Problems (1) Cancer of left breast Code(s): C50.912 - MALIGNANT NEOPLASM OF UNSPECIFIED SITE OF LEFT FEMALE BREAST Qualifiers: Breast location: central portion of breast Estrogen receptor status: positive Patient sex: female Qualified Code(s): C50.112 - Malignant neoplasm of central portion of left female breast; Z17.0 - Estrogen receptor positive status [ER+] (2) Diabetes mellitus type 2, uncontrolled, without complications Code(s): E11.65 - TYPE 2 DIABETES MELLITUS WITH HYPERGLYCEMIA (3) Diverticulitis small intestine w/o perforation or abscess w/o bleeding Code(s): K57.12 - DVTRCLI OF SM INT W/O PERFORATION OR ABSCESS W/O BLEEDING (4) Hypertension Code(s): I10 - ESSENTIAL (PRIMARY) HYPERTENSION Qualifiers: Hypertension type: essential hypertension Qualified Code(s): I10 - Essential (primary) hypertension Assessment/Plan Small intestine Diverticulitis DM CKD HTN Lt breast CA CAD HTN HLD -- patient is afebrile, leukocytosis improved, no diarrhea -- Now reportedly taking po meds, will switch to augmentin 500 po BID and treat for 5 more days (may crush pill) -- repeat cbc continue monitor vitals
[2018-06-29] MEDS: AMOX TR/POT CLAV 500MG/125MG TABLETS (FP) PO SCH (21:08)
[2018-06-29] MEDS: ATORVASTATIN CA 10 MG TABLET (FP) PO SCH (21:08)
[2018-06-30] MEDS: D5-1/2NS+20 MEQ KCL - 20 MEQ/1,000 ML INFUS.BAG IV SCH (02:18)
[2018-06-30] MEDS: INSULIN SLIDING SCALE (NOVOLOG) 1 VIAL SQ SCH ×3 (06:20→16:42)
[2018-06-30] MEDS: AMOX TR/POT CLAV 500MG/125MG TABLETS (FP) PO SCH ×2 (08:11→11:55)
[2018-06-30 08:23] LABS: BASO % 0.6 % (0-2.0); EOS % 5.3 % (0-4.5); HEMATOCRIT 36.4 % (32.4-45.2); LYMPH % 12.6 % (8-40); MCH 29.8 pg (25.7-33.7); MCHC 33.1 g/dl (32.0-36.0); MEAN CELL VOLUME 90.1 fl (80-96); MEAN PLT VOLUME 7.9 fl (7.5-11.1); MONO % 8.3 % (3.8-10.2); NEUT % 73.2 % (42.8-82.8); PLATELET COUNT 295 K/MM3 (134-434); RBC 4.04 M/mm3 (3.60-5.2); RDW 14.2 % (11.6-15.6); WHITE BLOOD COUNT 13.6 K/mm3 (4.0-10.0)
[2018-06-30] MEDS ORDERED: PT OWN MED DRAWER 7, Y5N ONE (09:31)
--- NOTE | 2018-06-30 09:38 | PN ---
Progress Note (short form) - Note Progress Note: no distress did not take po meds Vital Signs - 24 hr 06/29/18 06/29/18 06/30/18 22:00 23:03 05:32 Temperature 98.6 F Pulse Rate 77 87 Respiratory 20 20 Rate Blood Pressure 126/77 159/71 O2 Sat by Pulse 96 Oximetry (%) 06/30/18 09:00 Temperature 97.9 F Pulse Rate 94 H Respiratory 20 Rate Blood Pressure 141/68 O2 Sat by Pulse Oximetry (%) Current Medications Generic Name Dose Route Start Last Admin Trade Name Freq PRN Reason Stop Dose Admin Acetaminophen 650 mg 06/25/18 01:17 Tylenol - PO Q6H PRN FEVER/PAIN LEVEL 1-5 Amlodipine Besylate 10 mg 06/25/18 10:00 06/30/18 11:47 Norvasc - PO Not Given DAILY [facility] Anastrozole 1 mg 06/25/18 10:00 06/30/18 11:49 Arimidex - PO Not Given DAILY [facility] Aspirin 81 mg 06/25/18 10:00 06/30/18 11:47 Asa - PO Not Given DAILY [facility] Atorvastatin Calcium 10 mg 06/25/18 22:00 06/29/18 21:08 Lipitor - PO 10 mg HS [facility] Administration Carvedilol 6.25 mg 06/25/18 10:00 06/30/18 11:47 Coreg - PO Not Given DAILY [facility] Enalapril Maleate 20 mg 06/25/18 10:00 06/30/18 11:48 Vasotec - PO Not Given DAILY [facility] Ergocalciferol 50,000 unit 06/30/18 10:00 06/30/18 11:49 Drisdol - PO 50,000 unit [place]@1000 [facility] Administration Heparin Sodium (Porcine) 5,000 unit 06/25/18 10:00 06/30/18 11:47 Heparin - SQ 5,000 unit BID [facility] Administration Potassium Chloride/Dextrose/Sod Cl 20 meq in 1,000 mls @ 83 mls/hr 06/25/18 01 :17 06/30/18 02:18 D5-1/2ns+20 Meq Kcl - IV 83 mls/hr ASDIR [facility] Administration Piperacillin Sod/Tazobactam 50 mls @ 100 mls/hr 07/01/18 15:00 Sod 2.25 gm/ Dextrose IVPB Q6H-IV [facility] Protocol Piperacillin Sod/Tazobactam 50 mls @ 100 mls/hr 06/30/18 10:30 06/30/18 15:25 Sod 2.25 gm/ Dextrose IVPB 07/01/18 09:29 100 mls/hr Q6H-IV [facility] Administration Insulin Aspart 1 vial 06/25/18 12:00 06/30/18 16:42 Novolog Vial Sliding Scale - SQ 6 units TIDAC [facility] Administration Protocol Lactobacillus Acidophilus 1 tab 06/26/18 11:30 06/30/18 11:47 Bacid - PO Not Given DAILY [facility] Magnesium Oxide 400 mg 06/25/18 10:00 06/30/18 11:48 Mag-Ox - PO Not Given DAILY [facility] Rivastigmine 1 each 06/25/18 10:00 06/30/18 11:49 Exelon Patch 4.6mg/24 Hours - TD 1 each DAILY [facility] Administration Laboratory Results - last 24 hr 06/30/18 06/30/18 06/30/18 07:00 11:19 16:37 WBC 13.6 H RBC 4.04 Hgb 12.0 Hct 36.4 MCV 90.1 MCH 29.8 MCHC 33.1 RDW 14.2 Plt Count 295 MPV 7.9 Absolute Neuts (auto) 10.0 H Neutrophils % 73.2 Lymphocytes % 12.6 D Monocytes % 8.3 Eosinophils % 5.3 H Basophils % 0.6 Nucleated RBC % 0 POC Glucometer 203 244 S1 S2 RRR lungs decreased Abd- soft, mild tender abdomen no edema PLAN continue abx-- complete today diet as tolerated iv antibiotics till today , continue with ZOsyn as she is not taking PO meds wbc better pt is dnr / DNI dc planning on Sunday once antibiotics completed Problem List - Problems (1) Diabetes mellitus type 2, uncontrolled, without complications Code(s): E11.65 - TYPE 2 DIABETES MELLITUS WITH HYPERGLYCEMIA (2) Diverticulitis small intestine w/o perforation or abscess w/o bleeding Code(s): K57.12 - DVTRCLI OF SM INT W/O PERFORATION OR ABSCESS W/O BLEEDING (3) Hypertension Code(s): I10 - ESSENTIAL (PRIMARY) HYPERTENSION Qualifiers: Hypertension type: essential hypertension Qualified Code(s): I10 - Essential (primary) hypertension
[2018-06-30] MEDS ORDERED: ERGOCALCIFEROL (VITAMIN D2) 50,000 UNIT CAPSULE (FP) PO SCH (10:00)
[2018-06-30] MEDS ORDERED: DEXTROSE 5%-WATER - 50 ML IVPB ONE ×3 (10:51→21:16)
[2018-06-30] MEDS ORDERED: PIPERACILLIN/TAZOBACTAM 2.25 GM VIAL IVPB ONE ×3 (10:51→21:15)
[2018-06-30] MEDS: PIPERACILLIN/TAZOB 2.25 GM 2.25 GM in DEXTROSE 5%-WATER - 50 ML IVPB SCH ×3 (11:00→21:54)
[2018-06-30] MEDS ORDERED: INSULIN (NOVOLOG) ASPART 100 UNITS/ML 10ML VIAL ONE (11:30)
[2018-06-30] MEDS: HEPARIN NA (PORCINE) 5,000 UNITS/ML 1ML VIAL SQ SCH ×2 (11:47→21:54)
[2018-06-30] MEDS: amLODIPine BESYLATE 10 MG TABLET (FP) PO SCH (11:47)
[2018-06-30] MEDS: LACTOBACILLUS ACIDOPHILUS 1 TABLET PO SCH (11:47)
[2018-06-30] MEDS: ASPIRIN 81 MG CHEWABLE TABLETS PO SCH (11:47)
[2018-06-30] MEDS: CARVEDILOL 6.25 MG TABLET (FP) PO SCH (11:47)
[2018-06-30] MEDS: MAGNESIUM OXIDE 400 MG TABLET (FP) PO SCH (11:48)
[2018-06-30] MEDS: ENALAPRIL MALEATE 10 MG TABLET (FP) PO SCH (11:48)
[2018-06-30] MEDS: ANASTROZOLE 1 MG TABLET PO SCH (11:49)
[2018-06-30] MEDS: RIVASTIGMINE 4.6 MG/24 HOURS TRANSDERMAL PATCH TD SCH (11:49)
--- NOTE | 2018-06-30 15:24 | PN ---
Progress Note, Physician History of Present Illness: Pt is easily arousable, responsive. Remains afebrile, no respiratory distress, denies abd pain. No diarrhea reported. WBC remains mildly elevated. - Current Medication List Current Medications: Active Medications Acetaminophen (Tylenol -) 650 mg PO Q6H PRN PRN Reason: FEVER/PAIN LEVEL 1-5 Amlodipine Besylate (Norvasc -) 10 mg PO DAILY [facility] Last Admin: 06/30/18 11:47 Dose: Not Given Anastrozole (Arimidex -) 1 mg PO DAILY [facility] Last Admin: 06/30/18 11:49 Dose: Not Given Aspirin (Asa -) 81 mg PO DAILY [facility] Last Admin: 06/30/18 11:47 Dose: Not Given Atorvastatin Calcium (Lipitor -) 10 mg PO HS [facility] Last Admin: 06/29/18 21:08 Dose: 10 mg Carvedilol (Coreg -) 6.25 mg PO DAILY [facility] Last Admin: 06/30/18 11:47 Dose: Not Given Enalapril Maleate (Vasotec -) 20 mg PO DAILY [facility] Last Admin: 06/30/18 11:48 Dose: Not Given Ergocalciferol (Drisdol -) 50,000 unit PO [place]o@1000 [facility] Last Admin: 06/30/18 11:49 Dose: 50,000 unit Heparin Sodium (Porcine) (Heparin -) 5,000 unit SQ BID [facility] Last Admin: 06/30/18 11:47 Dose: 5,000 unit Potassium Chloride/Dextrose/Sod Cl (D5-1/2ns+20 Meq Kcl -) 20 meq in 1,000 mls @ 83 mls/hr IV ASDIR [facility] Last Admin: 06/30/18 02:18 Dose: 83 mls/hr Piperacillin Sod/Tazobactam (Sod 2.25 gm/ Dextrose) 50 mls @ 100 mls/hr IVPB Q6H-IV [facility]; Protocol Piperacillin Sod/Tazobactam (Sod 2.25 gm/ Dextrose) 50 mls @ 100 mls/hr IVPB Q6H-IV [facility] Stop: 07/01/18 09:29 Last Admin: 06/30/18 11:00 Dose: 100 mls/hr Insulin Aspart (Novolog Vial Sliding Scale -) 1 vial SQ TIDAC [facility]; Protocol Last Admin: 06/30/18 11:37 Dose: 6 units Lactobacillus Acidophilus (Bacid -) 1 tab PO DAILY [facility] Last Admin: 06/30/18 11:47 Dose: Not Given Magnesium Oxide (Mag-Ox -) 400 mg PO DAILY [facility] Last Admin: 06/30/18 11:48 Dose: Not Given Rivastigmine (Exelon Patch 4.6mg/24 Hours -) 1 each TD DAILY [facility] Last Admin: 06/30/18 11:49 Dose: 1 each - Objective Vital Signs: Vital Signs Temperature 97.9 F 06/30/18 09:00 Pulse Rate 94 H 06/30/18 09:00 Respiratory Rate 20 06/30/18 09:00 Blood Pressure 141/68 06/30/18 09:00 O2 Sat by Pulse Oximetry (%) 96 06/29/18 22:00 Constitutional: Yes: No Distress, Calm Cardiovascular: Yes: Regular Rate and Rhythm Respiratory: Yes: Regular Gastrointestinal: Yes: Normal Bowel Sounds, Soft Edema: No Integumentary: Yes: WNL Labs: CBC, BMP 06/30/18 07:00 06/27/18 06:50 Microbiology 06/23/18 18:09 Urine - Urine - Catheterized Urine Culture - Final NO GROWTH OBTAINED Problem List - Problems (1) Cancer of left breast Code(s): C50.912 - MALIGNANT NEOPLASM OF UNSPECIFIED SITE OF LEFT FEMALE BREAST Qualifiers: Breast location: central portion of breast Estrogen receptor status: positive Patient sex: female Qualified Code(s): C50.112 - Malignant neoplasm of central portion of left female breast; Z17.0 - Estrogen receptor positive status [ER+] (2) Diabetes mellitus type 2, uncontrolled, without complications Code(s): E11.65 - TYPE 2 DIABETES MELLITUS WITH HYPERGLYCEMIA (3) Diverticulitis small intestine w/o perforation or abscess w/o bleeding Code(s): K57.12 - DVTRCLI OF SM INT W/O PERFORATION OR ABSCESS W/O BLEEDING (4) Hypertension Code(s): I10 - ESSENTIAL (PRIMARY) HYPERTENSION Qualifiers: Hypertension type: essential hypertension Qualified Code(s): I10 - Essential (primary) hypertension Assessment/Plan Small intestine Diverticulitis DM CKD HTN Lt breast CA CAD HTN HLD -- wbc mildly elevated -- Pt taking po meds, continue Augmentin -- repeat cbc in am Afebrile, vitals stable, no acute distress at this time continue monitor
[2018-06-30] MEDS: ATORVASTATIN CA 10 MG TABLET (FP) PO SCH (21:54)
[2018-06-30 23:01] VITALS: TEMP 97
[2018-07-01] MEDS ORDERED: DEXTROSE 5%-WATER - 50 ML IVPB ONE ×2 (02:37→09:40)
[2018-07-01] MEDS ORDERED: PIPERACILLIN/TAZOBACTAM 2.25 GM VIAL IVPB ONE ×2 (02:37→09:40)
[2018-07-01] MEDS: PIPERACILLIN/TAZOB 2.25 GM 2.25 GM in DEXTROSE 5%-WATER - 50 ML IVPB SCH ×2 (03:05→09:45)
[2018-07-01] MEDS: INSULIN SLIDING SCALE (NOVOLOG) 1 VIAL SQ SCH ×2 (06:28→12:03)
[2018-07-01] MEDS: D5-1/2NS+20 MEQ KCL - 20 MEQ/1,000 ML INFUS.BAG IV SCH (06:28)
[2018-07-01 07:28] LABS: BASO % 0.8 % (0-2.0); EOS % 6.3 % (0-4.5); HEMATOCRIT 36.4 % (32.4-45.2); LYMPH % 13.6 % (8-40); MCH 29.9 pg (25.7-33.7); MEAN CELL VOLUME 90.5 fl (80-96); MEAN PLT VOLUME 7.8 fl (7.5-11.1); MONO % 8.1 % (3.8-10.2); NEUT % 71.2 % (42.8-82.8); PLATELET COUNT 315 K/MM3 (134-434); RBC 4.03 M/mm3 (3.60-5.2); RDW 14.1 % (11.6-15.6); WHITE BLOOD COUNT 13.7 K/mm3 (4.0-10.0)
[2018-07-01] MEDS: RIVASTIGMINE 4.6 MG/24 HOURS TRANSDERMAL PATCH TD SCH (09:47)
[2018-07-01] MEDS: LACTOBACILLUS ACIDOPHILUS 1 TABLET PO SCH (09:50)
[2018-07-01] MEDS: CARVEDILOL 6.25 MG TABLET (FP) PO SCH (09:51)
[2018-07-01] MEDS: HEPARIN NA (PORCINE) 5,000 UNITS/ML 1ML VIAL SQ SCH (09:51)
[2018-07-01] MEDS: ANASTROZOLE 1 MG TABLET PO SCH (09:51)
[2018-07-01] MEDS: ENALAPRIL MALEATE 10 MG TABLET (FP) PO SCH (09:51)
[2018-07-01] MEDS: MAGNESIUM OXIDE 400 MG TABLET (FP) PO SCH (09:51)
[2018-07-01] MEDS: ASPIRIN 81 MG CHEWABLE TABLETS PO SCH (09:51)
[2018-07-01] MEDS: amLODIPine BESYLATE 10 MG TABLET (FP) PO SCH (09:51)
--- NOTE | 2018-07-01 11:55 | DS ---
Physical Examination Vital Signs: Vital Signs Temperature 97.0 F L 06/30/18 22:58 Pulse Rate 70 07/01/18 06:00 Respiratory Rate 20 07/01/18 06:00 Blood Pressure 124/64 07/01/18 06:00 O2 Sat by Pulse Oximetry (%) 96 06/30/18 21:00 Findings/Remarks: pt seen/ examined awake/ comfortable denies pain afebrile takes meds now eating ok no distress slightly high wbc but non toxic appearance Constitutional: Yes: No Distress, Calm Eyes: Yes: Conjunctiva Clear Neck: Yes: Supple Cardiovascular: Yes: Regular Rate and Rhythm Respiratory: Yes: CTA Bilaterally Gastrointestinal: Yes: Soft Edema: No Neurological: Yes: Other (awake). No: Alert Psychiatric: Yes: Alert Labs: CBC, BMP 07/01/18 06:45 06/27/18 06:50 Discharge Summary Reason For Visit: DIVERTICULITIS SMLL INTESTINE W/O PERFORATION OR Current Active Problems Cancer of left breast (Acute) Diabetes mellitus type 2, uncontrolled, without complications (Acute) Diverticulitis small intestine w/o perforation or abscess w/o bleeding (Acute) Hypertension (Acute) Hospital Course: admitted for diverticultis treated with abx better will d/c to [facility] on po abx meds reconcilled will change lantus to bid monitor bgm and adjust d/c glucophage/ glipizide-- elderly / cr borderline high discussed with nursing staff also will follow. Pt is dnr/ di Condition: Stable - Instructions Referrals: Salma Martinez MD [Primary Care Provider] - - Home Medications Comprehensive Discharge Medication List: Ambulatory Orders Acetaminophen [Tylenol] 650 mg PO ASDIR 06/23/18 Amlodipine Besylate [Norvasc -] 10 mg PO DAILY 06/23/18 Anastrozole [Arimidex] 1 mg PO DAILY 06/23/18 Aspirin 81 mg PO DAILY 06/23/18 Carvedilol 6.25 mg PO DAILY 06/23/18 Cholecalciferol (Vitamin D3) [Vitamin D3] 50,000 unit PO WEEKLY 06/23/18 Enalapril Maleate [Vasotec] 20 mg PO DAILY 06/23/18 Insulin Glargine,Hum.rec.anlog [Lantus] 100 unit SQ ASDIR 06/23/18 Insulin Lispro [Humalog] 100 unit SQ ASDIR 06/23/18 Magnesium Oxide [Magnesium] 400 mg PO DAILY 06/23/18 Pravastatin Sodium [Pravachol -] 20 mg PO HS 06/23/18 Rivastigmine [Exelon Patch 4.6MG/24 Hours -] 1 each TD DAILY 06/23/18 Amox-Tr/K Cl [Augmentin 500-125mg Tablet -] 1 tab PO BID@0800,1730 5 Days #10 tablet 07/01/18 Heparin - 5,000 unit SQ BID vial 07/01/18 Lactobacillus Acidophilus [Bacid -] 1 tab PO DAILY tab 07/01/18
--- NOTE | 2018-07-01 13:22 | PN ---
Progress Note, Physician History of Present Illness: stable no new issues - Current Medication List Current Medications: Active Medications Acetaminophen (Tylenol -) 650 mg PO Q6H PRN PRN Reason: FEVER/PAIN LEVEL 1-5 Amlodipine Besylate (Norvasc -) 10 mg PO DAILY [facility] Last Admin: 07/01/18 09:51 Dose: 10 mg Anastrozole (Arimidex -) 1 mg PO DAILY [facility] Last Admin: 07/01/18 09:51 Dose: 1 mg Aspirin (Asa -) 81 mg PO DAILY [facility] Last Admin: 07/01/18 09:51 Dose: 81 mg Atorvastatin Calcium (Lipitor -) 10 mg PO HS [facility] Last Admin: 06/30/18 21:54 Dose: 10 mg Carvedilol (Coreg -) 6.25 mg PO DAILY [facility] Last Admin: 07/01/18 09:51 Dose: 6.25 mg Enalapril Maleate (Vasotec -) 20 mg PO DAILY [facility] Last Admin: 07/01/18 09:51 Dose: 20 mg Ergocalciferol (Drisdol -) 50,000 unit PO [place]@1000 [facility] Last Admin: 06/30/18 11:49 Dose: 50,000 unit Heparin Sodium (Porcine) (Heparin -) 5,000 unit SQ BID [facility] Last Admin: 07/01/18 09:51 Dose: 5,000 unit Potassium Chloride/Dextrose/Sod Cl (D5-1/2ns+20 Meq Kcl -) 20 meq in 1,000 mls @ 83 mls/hr IV ASDIR [facility] Last Admin: 07/01/18 06:28 Dose: 83 mls/hr Piperacillin Sod/Tazobactam (Sod 2.25 gm/ Dextrose) 50 mls @ 100 mls/hr IVPB Q6H-IV [place]; Protocol Insulin Aspart (Novolog Vial Sliding Scale -) 1 vial SQ TIDAC [facility]; Protocol Last Admin: 07/01/18 12:03 Dose: 9 units Lactobacillus Acidophilus (Bacid -) 1 tab PO DAILY [facility] Last Admin: 07/01/18 09:50 Dose: 1 tab Magnesium Oxide (Mag-Ox -) 400 mg PO DAILY [facility] Last Admin: 07/01/18 09:51 Dose: 400 mg Rivastigmine (Exelon Patch 4.6mg/24 Hours -) 1 each TD DAILY [facility] Last Admin: 07/01/18 09:47 Dose: 1 each - Objective Vital Signs: Vital Signs Temperature 97.0 F L 06/30/18 22:58 Pulse Rate 72 07/01/18 10:00 Respiratory Rate 18 07/01/18 10:00 Blood Pressure 138/74 07/01/18 10:00 O2 Sat by Pulse Oximetry (%) 96 07/01/18 09:00 Constitutional: Yes: No Distress, Calm Cardiovascular: Yes: Regular Rate and Rhythm Respiratory: Yes: Regular, CTA Bilaterally Gastrointestinal: Yes: Normal Bowel Sounds, Soft Musculoskeletal: Yes: WNL Extremities: Yes: WNL Neurological: Yes: Alert Psychiatric: Yes: Other Labs: CBC, BMP 07/01/18 06:45 06/27/18 06:50 Assessment/Plan i think the patient could have aspirated and also is probably dehydrated Problem List - Problems (1) Diabetes mellitus type 2, uncontrolled, without complications Code(s): E11.65 - TYPE 2 DIABETES MELLITUS WITH HYPERGLYCEMIA (2) Diverticulitis small intestine w/o perforation or abscess w/o bleeding Code(s): K57.12 - DVTRCLI OF SM INT W/O PERFORATION OR ABSCESS W/O BLEEDING (3) Hypertension Code(s): I10 - ESSENTIAL (PRIMARY) HYPERTENSION Qualifiers: Hypertension type: essential hypertension Qualified Code(s): I10 - Essential (primary) hypertension 4 pna 5 leukocytosis plan continue current mgmt rest as per the team
[2018-07-01 14:50] VITALS: BP 109/71; PULSE 77
[2018-07-01] MEDS ORDERED: PIPERACILLIN/TAZOB 2.25 GM 2.25 GM in DEXTROSE 5%-WATER - 50 ML IVPB SCH (15:00)
== END 2018-07-01 15:32 | DRG 392 ==
LOC: JER 16:38 → SUPCPDRO 16:38 → JERBED 21:08 → J6S 06-25 00:54
PROVIDERS: ADMIT Internal Medicine; ATTEND Internal Medicine
DX: K57.12 Diverticulitis of small intestine without perforation or abscess without bleeding (principal); F03.90 Unspecified dementia, unspecified severity, without behavioral disturbance, psychotic disturbance, mood disturbance, and anxiety; E11.65 Type 2 diabetes mellitus with hyperglycemia; I10 Essential (primary) hypertension; C50.112 Malignant neoplasm of central portion of left female breast; D72.829 Elevated white blood cell count, unspecified; E86.0 Dehydration; C50.912 Malignant neoplasm of unspecified site of left female breast; I25.10 Atherosclerotic heart disease of native coronary artery without angina pectoris; E78.5 Hyperlipidemia, unspecified; E87.5 Hyperkalemia
CPT/HCPCS: 36415; 71045-TC-FY; 74176-TC; 80048; 80053; 81003; 82009; 82962; 83036; 83690; 83735; 84484; 85025; 85027; 87086; 93005; 93010; 99285-25; J1644; J7030